=== PATIENT | female | born 1945 | race Caucasian/White ===

== ENCOUNTER → 2017-07-30 | Outpatient (CLI) | payer MEDICARE ==
[~2017-07-30] MED LIST: ALBU17IN2 INH; ASCO25TA PO; CALCIUM +D PO; CENT1TAB PO; CITA20TA4 PO; COUM2.5T17 PO; ESTR1TAB PO; FLON0.054; HYDR25TAB PO; LEVOPOW43 PO; MILKSUS PO; MIRA3350 PO; PERC5TAB12 PO; PERI8.6T PO; POTA75TA PO; PULM0.25 INH; RANI1TAB6 PO; SENO8.6T5 PO; SIMV20TA2 PO; TYLE325T5 PO; VESI10TA2 PO; VITA500046 PO; [UNRECOGNIZED DRUG - CODE] OS; [UNRECOGNIZED DRUG - OTHER] PO
--- NOTE | 2017-07-30 10:44 | REPMRS ---
Patient History The patient states she had a clinical breast exam in 07/2017. Patient is postmenopausal and has history of squamous cell skin cancer at age 63. Family history of colorectal cancer in sister at age 49. Benign excisional biopsy of the right breast, 1997. Took unspecified hormones for 19 years. Digital Woman Screen Mammo: July 30, 2017 - Exam #: [id number] Bilateral CC and MLO view(s) were taken. Technologist: Lexii Giang, Technologist Prior study comparison: July 29, 2016, digital woman screen mammo performed at [facility]. July 28, 2015, digital woman screen mammo performed at [facility]. FINDINGS: There are scattered fibroglandular densities. There is a fairly symmetric fibroglandular pattern in both breasts. There has been no interval development of masses, areas of architectural distortion or clusters of microcalcifications typical of malignancy. ASSESSMENT: BI-RADS/ACR category 2 mammogram. Benign finding(s). Recommendation Routine screening mammogram of both breasts in 1 year (for women over age 40). This mammogram was interpreted with the aid of an FDA-approved computer-aided dectection system. Electronically Signed By: Carlo Tidwell MD 07/30/17 [id number]
--- NOTE | 2017-07-31 09:34 | DEXA ---
AP SPINE L1 - L4 1.132 -0.5 1.2 LT FEMUR TOTAL HIPS REPLACED. RT FEMUR TOTAL HIPS REPLACED. TOTAL BODY TOTAL OTHER L-FOREARM 0.878 -0.1 1.8 DUAL FEMUR FRAX* ASSESSMENT Risk factors: Not performed. 10 year probability of fracture Major osteoporotic fracture % Hip fracture % COMMENTS: Normal bone densitometry of the spine. Normal bone densitometry of the left radius. The decreased density of the spine does represent a significant change. The density of the spine has decreased 3.2% since the initial exam on 06/2012. The spine density has decreased 6.9% since the most recent exam on 09/2003. FOLLOW-UP: Recommendation for the next bone density exam: 5 years. MARTÍND
== END ==
LOC: M WHC 09:00
PROVIDERS: ATTEND Nurse Practitioner Family
DX: Z01.419 Encounter for gynecological examination (general) (routine) without abnormal findings (principal); Z12.31 Encounter for screening mammogram for malignant neoplasm of breast; N95.9 Unspecified menopausal and perimenopausal disorder; Z78.0 Asymptomatic menopausal state; Z12.12 Encounter for screening for malignant neoplasm of rectum; Z92.89 Personal history of other medical treatment; Z92.23 Personal history of estrogen therapy
CPT/HCPCS: 77080; 82270; G0101; G0202

== ENCOUNTER → 2017-08-05 | Outpatient (REF) | payer MEDICARE ==
[2017-08-05 14:13] LABS: MEAN CORPUSCULAR HEMOGLOBIN 32.5 pg (27.0-33.0); MEAN CORPUSCULAR HGB CONC 35.1 g/dl (32.0-36.5); MEAN CORPUSCULAR VOLUME 92.7 fl (80.0-96.0); RED CELL DISTRIBUTION WIDTH 12.2 % (11.5-14.5); WHITE BLOOD COUNT 5.9 10^3/uL (4.0-10.0)
[2017-08-05 14:52] LABS: ALBUMIN/GLOBULIN RATIO 1.48 (1.00-1.93); ALKALINE PHOSPHATASE 68 U/L (45-117); ALT/SGPT 19 U/L (12-78); ANION GAP 8 MEQ/L (8-16); AST/SGOT 18 U/L (15-37); BILIRUBIN,TOTAL 1.1 MG/DL (0.2-1.0); BLOOD UREA NITROGEN 10 MG/DL (7-18); CALCIUM LEVEL 9.1 MG/DL (8.8-10.2); CARBON DIOXIDE LEVEL 28 MEQ/L (21-32); CHLORIDE LEVEL 95 MEQ/L (98-107); CHOLESTEROL LEVEL 173 MG/DL (<200); CREATININE FOR GFR 0.78 MG/DL (0.55-1.02); FREE T4 1.12 NG/DL (0.76-1.46); GLOMERULAR FILTRATION RATE > 60.0 (>39); GLUCOSE, FASTING 125 MG/DL (83-110); POTASSIUM SERUM 3.9 MEQ/L (3.5-5.1); SODIUM LEVEL 131 MEQ/L (136-145); TOTAL PROTEIN 6.7 GM/DL (6.4-8.2); TRIGLYCERIDES LEVEL 150 MG/DL (<150)
[2017-08-06 11:06] LABS: HEP C VIRUS AB SCREEN MEDICARE 0.2 INDEX (<0.8)
== END ==
LOC: M SFHCADAM 09:33
PROVIDERS: ATTEND Physician Assistant
DX: J44.9 Chronic obstructive pulmonary disease, unspecified (principal); I10 Essential (primary) hypertension; E78.2 Mixed hyperlipidemia; E55.9 Vitamin D deficiency, unspecified; Z11.59 Encounter for screening for other viral diseases
CPT/HCPCS: 80053; 80061; 82306; 84439; 84443; 85027; G0472

== ENCOUNTER → 2017-08-22 | Outpatient (REF) | payer MEDICARE | LOC: M LAB REF 16:20 | PROVIDERS: ATTEND Obstetrics & Gynecology | DX: Z87.440 Personal history of urinary (tract) infections (principal) ==

== ENCOUNTER → 2017-10-23 | Outpatient (REF) | payer MEDICARE ==
[2017-10-23 13:23] LABS: ANION GAP 5 MEQ/L (8-16); BLOOD UREA NITROGEN 12 MG/DL (7-18); CALCIUM LEVEL 9.3 MG/DL (8.8-10.2); CARBON DIOXIDE LEVEL 34 MEQ/L (21-32); CHLORIDE LEVEL 94 MEQ/L (98-107); CREATININE FOR GFR 0.71 MG/DL (0.55-1.02); GLOMERULAR FILTRATION RATE > 60.0 (>39); GLUCOSE, FASTING 101 MG/DL (83-110); POTASSIUM SERUM 3.7 MEQ/L (3.5-5.1); SODIUM LEVEL 133 MEQ/L (136-145)
== END ==
LOC: M SFHCPLAZ 09:56
PROVIDERS: ATTEND Family Medicine
DX: R73.03 Prediabetes (principal)

== ENCOUNTER 2018-03-02 06:18 | Day surgery (SDC) | payer MEDICARE ==
[2018-03-02] MEDS ORDERED: LR 1,000 ML IV ×4 (06:30→11:00)
[2018-03-02] MEDS ORDERED: MIDAZOLAM INJ 2 MG/2 ML VIAL (J2250) As Ordered ×2 (06:49)
[2018-03-02] MEDS ORDERED: fentaNYL 100 MCG/2 ML INJECTION (J3010) As Ordered ×2 (06:50)
[2018-03-02] MEDS ORDERED: PROPOFOL 200 MG/20 ML VIAL As Ordered ×4 (06:51→09:52)
[2018-03-02] MEDS ORDERED: ROCURONIUM BROMIDE 50 MG/5 ML VIAL As Ordered ×2 (06:51)
[2018-03-02] MEDS ORDERED: dexameTHASONE 4 MG/ML 1ML VIAL (J1100) As Ordered ×2 (06:51)
[2018-03-02] MEDS ORDERED: LIDOCAINE 2% INJ 100 MG/5 ML SDV (FOR ANES.) As Ordered ×2 (06:51)
[2018-03-02] MEDS: LR 1,000 ML IV ×2 (07:01)
[2018-03-02] MEDS ORDERED: ONDANSETRON 4MG/2ML VIAL (J2405) As Ordered ×4 (07:03→10:31)
[2018-03-02 07:10] LABS: BEDSIDE GLUCOSE 134 MG/DL (83-110)
[2018-03-02] MEDS: PHENAZOPYRIDINE 100 MG TAB PO ×2 (07:47)
[2018-03-02] MEDS: VASOPRESSIN INJ 20 UNITS/ML VIAL As Ordered ×2 (08:23)
[2018-03-02] MEDS ORDERED: PHENYLephrine HCL 500 MCG/5 ML (100MCG/ML) SYRINGE (J2370) As Ordered ×2 (09:01)
[2018-03-02] MEDS ORDERED: HYDROmorphone HCL 1 MG/ML SYRINGE (J1170) As Ordered ×2 (10:32)
[2018-03-02] MEDS: HYDROmorphone HCL 1 MG/ML SYRINGE (J1170) IV ×4 (10:40→11:05)
[2018-03-02] MEDS: ONDANSETRON 4MG/2ML VIAL (J2405) IV ×2 (10:40)
[2018-03-02] MEDS ORDERED: fentaNYL 100 MCG/2 ML INJECTION (J3010) IV ×2 (11:00)
[2018-03-02] MEDS ORDERED: METOCLOPRAMIDE INJ 10MG/2ML VIAL (J2765) IV ×2 (11:00)
[2018-03-02] MEDS ORDERED: PERCOCET 5MG/325MG TAB PO ×2 (11:00)
[2018-03-02] MEDS ORDERED: IBUPROFEN 600 MG TAB PO ×2 (11:15)
[2018-03-02] MEDS: NORCO, ANEXSIA 5/325MG TABLET (HYDROcodone/ACETAMINOPHEN) PO ×2 (12:19)
== END 2018-03-02 14:00 | disposition home or self-care (01) ==
LOC: M SDC 06:18
DX: N81.89 Other female genital prolapse (principal); N39.3 Stress incontinence (female) (male); N36.42 Intrinsic sphincter deficiency (ISD); N36.41 Hypermobility of urethra; N95.2 Postmenopausal atrophic vaginitis; I10 Essential (primary) hypertension; E78.5 Hyperlipidemia, unspecified; F32.9 Major depressive disorder, single episode, unspecified; K21.0 Gastro-esophageal reflux disease with esophagitis; G43.909 Migraine, unspecified, not intractable, without status migrainosus; M15.0 Primary generalized (osteo)arthritis; R73.03 Prediabetes; K57.30 Diverticulosis of large intestine without perforation or abscess without bleeding; E55.9 Vitamin D deficiency, unspecified; R06.02 Shortness of breath; J44.9 Chronic obstructive pulmonary disease, unspecified; R06.83 Snoring; R29.898 Other symptoms and signs involving the musculoskeletal system; Z88.1 Allergy status to other antibiotic agents; Z88.8 Allergy status to other drugs, medicaments and biological substances; Z79.899 Other long term (current) drug therapy; Z79.84 Long term (current) use of oral hypoglycemic drugs; Z85.828 Personal history of other malignant neoplasm of skin; Z90.710 Acquired absence of both cervix and uterus; Z96.1 Presence of intraocular lens; Z96.642 Presence of left artificial hip joint
CPT/HCPCS: 57282

== ENCOUNTER → 2018-04-20 | Outpatient (REF) | payer MEDICARE ==
[2018-04-20 13:17] LABS: ALBUMIN/GLOBULIN RATIO 1.29 (1.00-1.93); ALKALINE PHOSPHATASE 62 U/L (45-117); ALT/SGPT 17 U/L (12-78); ANION GAP 9 MEQ/L (8-16); AST/SGOT 19 U/L (7-37); BLOOD UREA NITROGEN 7 MG/DL (7-18); CALCIUM LEVEL 9.2 MG/DL (8.8-10.2); CARBON DIOXIDE LEVEL 32 MEQ/L (21-32); CHLORIDE LEVEL 95 MEQ/L (98-107); CHOLESTEROL LEVEL 185 MG/DL (<200); CREATININE FOR GFR 0.73 MG/DL (0.55-1.30); GLOMERULAR FILTRATION RATE > 60.0 (>39); GLUCOSE, FASTING 120 MG/DL (70-100); HDL CHOLESTEROL 68 MG/DL (>40); LDL CHOLESTEROL 90.8 MG/DL (<100); NON-HDL-C 117 MG/DL; POTASSIUM SERUM 3.7 MEQ/L (3.5-5.1); SODIUM LEVEL 136 MEQ/L (136-145); TOTAL PROTEIN 7.1 GM/DL (6.4-8.2); TRIGLYCERIDES LEVEL 131 MG/DL (<150)
[2018-04-20 14:36] LABS: ESTIMATED AVERAGE GLUCOSE 140 MG/DL (60-110); HEMOGLOBIN A1c 6.5 %
== END ==
LOC: M SFHCADAM 10:22
DX: R73.03 Prediabetes (principal); E78.2 Mixed hyperlipidemia
CPT/HCPCS: 80053

== ENCOUNTER → 2018-07-16 | Outpatient (REF) | payer MEDICARE ==
[2018-07-16 13:49] LABS: ANION GAP 10 MEQ/L (8-16); BLOOD UREA NITROGEN 8 MG/DL (7-18); CALCIUM LEVEL 9.2 MG/DL (8.8-10.2); CARBON DIOXIDE LEVEL 31 MEQ/L (21-32); CHLORIDE LEVEL 98 MEQ/L (98-107); CREATININE FOR GFR 0.74 MG/DL (0.55-1.30); GLOMERULAR FILTRATION RATE > 60.0 (>39); GLUCOSE, FASTING 130 MG/DL (70-100); POTASSIUM SERUM 3.6 MEQ/L (3.5-5.1); SODIUM LEVEL 139 MEQ/L (136-145)
[2018-07-16 15:26] LABS: ESTIMATED AVERAGE GLUCOSE 163 MG/DL (60-110); HEMOGLOBIN A1c 7.3 %
== END ==
LOC: M SFHCADAM 09:24
DX: E11.628 Type 2 diabetes mellitus with other skin complications (principal)
CPT/HCPCS: 83036

== ENCOUNTER → 2018-07-23 | Outpatient (CLI) | payer MEDICARE | LOC: M RAD 12:41 | DX: I87.393 Chronic venous hypertension (idiopathic) with other complications of bilateral lower extremity (principal); R22.43 Localized swelling, mass and lump, lower limb, bilateral | CPT/HCPCS: 93970 ==

== ENCOUNTER → 2018-07-30 | Outpatient (CLI) | payer MEDICARE | LOC: M WHC 08:46 | DX: Z01.411 Encounter for gynecological examination (general) (routine) with abnormal findings (principal); Z12.31 Encounter for screening mammogram for malignant neoplasm of breast (principal); R92.8 Other abnormal and inconclusive findings on diagnostic imaging of breast; Z78.0 Asymptomatic menopausal state; Z80.0 Family history of malignant neoplasm of digestive organs; Z98.890 Other specified postprocedural states; Z92.29 Personal history of other drug therapy; Z12.12 Encounter for screening for malignant neoplasm of rectum | CPT/HCPCS: 77067 ==

== ENCOUNTER → 2018-09-28 | Outpatient (REF) | payer MEDICARE ==
[2018-09-28 19:51] LABS: APPEARANCE, URINE CLEAR (CLEAR); BACTERIA, URINE AUTO NEGATIVE (NEGATIVE); BILIRUBIN, URINE AUTO NEGATIVE (NEGATIVE); BLOOD, URINE BLOOD NEGATIVE (NEGATIVE); COLOR, URINE YELLOW (YELLOW); GLUCOSE, URINE (UA) AUTO 3+ mg/dL (NEGATIVE); KETONE, URINE AUTO NEGATIVE (NEGATIVE); LEUKOCYTE ESTERASE, URINE AUTO 1+ (NEGATIVE); NITRITE, URINE AUTO NEGATIVE (NEGATIVE); PROTEIN, URINE AUTO NEGATIVE (NEGATIVE); RBC, URINE AUTO 2 /HPF (0-3); SQUAMOUS EPITHELIAL CELL UR AU 1 /HPF (0-6); UROBILINOGEN, URINE AUTO 0.2 mg/dL (0.0-2.0); WBC, URINE AUTO 6 /HPF (0-3)
== END ==
LOC: M SFHCADAM 19:27
DX: R35.0 Frequency of micturition (principal)
CPT/HCPCS: 81001

== ENCOUNTER → 2018-11-20 | Outpatient (REF) | payer MEDICARE ==
[~2018-11-20] MED LIST changes: +COLA100C5 PO; +FLUT22IN INH; +METF850T4 PO; +MILK120011 PO; -MILKSUS PO; +VENTAER INH
[2018-11-20 14:00] LABS: ALBUMIN 3.8 GM/DL (3.2-5.2); ALT/SGPT 19 U/L (12-78); BLOOD UREA NITROGEN 13 MG/DL (7-18); CALCIUM LEVEL 8.9 MG/DL (8.8-10.2); CARBON DIOXIDE LEVEL 31 MEQ/L (21-32); CHLORIDE LEVEL 103 MEQ/L (98-107); CREATININE FOR GFR 0.79 MG/DL (0.55-1.30); GLOMERULAR FILTRATION RATE > 60.0 (>39); GLUCOSE, FASTING 128 MG/DL (70-100); POTASSIUM SERUM 3.7 MEQ/L (3.5-5.1); SODIUM LEVEL 143 MEQ/L (136-145); TOTAL PROTEIN 6.9 GM/DL (6.4-8.2)
[2018-11-20 14:32] LABS: MAU/CREAT RATIO 17.8 MCG/MG (0.0-30.0)
== END ==
LOC: M SFHCADAM 09:23
PROVIDERS: ATTEND Family Medicine
DX: E11.628 Type 2 diabetes mellitus with other skin complications (principal)

== ENCOUNTER → 2019-02-18 | Outpatient (REF) | payer MEDICARE ==
[~2019-02-18] MED LIST changes: -ASCO25TA PO; -CITA20TA4 PO; +CITA20TA6 PO; +HYDR-2541 PO; -HYDR25TAB PO; +VITA1TAB23 PO
[2019-02-18 12:35] LABS: HEMATOCRIT 43.8 % (36.0-47.0); HEMOGLOBIN 14.8 g/dl (12.0-15.5); MEAN CORPUSCULAR HGB CONC 33.8 g/dl (32.0-36.5); MEAN CORPUSCULAR VOLUME 91.6 fl (80.0-96.0); PLATELET COUNT, AUTOMATED 205 10^3/uL (150-450); RED BLOOD COUNT 4.78 10^6/uL (4.00-5.40); WHITE BLOOD COUNT 5.4 10^3/uL (4.0-10.0)
[2019-02-18 12:38] LABS: ALBUMIN 4.1 GM/DL (3.2-5.2); ALT/SGPT 19 U/L (12-78); BILIRUBIN,TOTAL 1.2 MG/DL (0.2-1.0); BLOOD UREA NITROGEN 10 MG/DL (7-18); CALCIUM LEVEL 8.9 MG/DL (8.8-10.2); CARBON DIOXIDE LEVEL 34 MEQ/L (21-32); CHLORIDE LEVEL 97 MEQ/L (98-107); CHOLESTEROL LEVEL 212 MG/DL (<200); CHOLESTEROL RISK RATIO 2.904 (<5); CREATININE FOR GFR 0.81 MG/DL (0.55-1.30); GLOMERULAR FILTRATION RATE > 60.0 (>39); GLUCOSE, FASTING 127 MG/DL (70-100); HDL CHOLESTEROL 73 MG/DL (>40); LDL CHOLESTEROL 115 MG/DL (<100); NON-HDL-C 139 MG/DL; POTASSIUM SERUM 3.8 MEQ/L (3.5-5.1); SODIUM LEVEL 138 MEQ/L (136-145); TRIGLYCERIDES LEVEL 121 MG/DL (<150)
[2019-02-18 13:03] LABS: HEMOGLOBIN A1c 7.2 %
== END ==
LOC: M SFHCADAM 09:23
PROVIDERS: ATTEND Family Medicine
DX: F43.21 Adjustment disorder with depressed mood (principal); J44.9 Chronic obstructive pulmonary disease, unspecified; E11.628 Type 2 diabetes mellitus with other skin complications; E78.2 Mixed hyperlipidemia

== ENCOUNTER → 2019-06-01 | Outpatient (REF) | payer MEDICARE ==
[2019-06-01 13:17] LABS: BLOOD UREA NITROGEN 8 MG/DL (7-18); CALCIUM LEVEL 9.3 MG/DL (8.8-10.2); CARBON DIOXIDE LEVEL 32 MEQ/L (21-32); CHLORIDE LEVEL 98 MEQ/L (98-107); CREATININE FOR GFR 0.74 MG/DL (0.55-1.30); GLOMERULAR FILTRATION RATE > 60.0 (>39); GLUCOSE, FASTING 116 MG/DL (70-100); POTASSIUM SERUM 3.6 MEQ/L (3.5-5.1); SODIUM LEVEL 136 MEQ/L (136-145)
[2019-06-01 13:41] LABS: HEMOGLOBIN A1c 6.6 %
== END ==
LOC: M SFHCADAM 09:35
PROVIDERS: ATTEND Family Medicine
DX: E11.628 Type 2 diabetes mellitus with other skin complications (principal)

== ENCOUNTER → 2019-08-09 | Outpatient (CLI) | payer MEDICARE ==
[~2019-08-09] MED LIST changes: +RANI-397 PO; -RANI1TAB6 PO; -SIMV20TA2 PO; +SIMV20TA22 PO
--- NOTE | 2019-08-09 11:13 | REPMRS ---
Patient History The patient states she had a clinical breast exam in 07/2019. Family history of colorectal cancer at age 49 in son. Benign excisional biopsy of the right breast, 1997. Took unspecified hormones for 19 years. 3D TOMOSYNTHESIS WAS PERFORMED. The [facility] lifetime risk for breast cancer is 3.4%. Digital Woman Screen Mammo: August 09, 2019 - Exam #: [id number] Bilateral CC and MLO view(s) were taken. Technologist: Denise Hyde Technologist Prior study comparison: July 30, 2018, bilateral digital woman screen mammo performed at [facility]. July 30, 2017, digital woman screen mammo performed at [facility] [employer] [facility]. FINDINGS: There are scattered fibroglandular densities. There has been no change in the appearance of the mammogram from the prior studies. There is a mild amount of residual fibroglandular tissue which is fairly symmetric. There is no interval development of dominant mass, architectural distortion, or clustered microcalcification suggestive of malignancy. Assessment: BI-RADS/ACR category 1 mammogram. Negative Mammogram. Recommendation Routine screening mammogram in 1 year (for women over age 40). This mammogram was interpreted with the aid of an FDA-approved computer-aided dectection system. Electronically Signed By: Carlo Tidwell MD 08/09/19 [id number]
== END ==
LOC: M WHC 09:23
PROVIDERS: ATTEND Nurse Practitioner Family
DX: Z12.31 Encounter for screening mammogram for malignant neoplasm of breast (principal); Z80.0 Family history of malignant neoplasm of digestive organs; Z86.018 Personal history of other benign neoplasm; Z92.29 Personal history of other drug therapy
CPT/HCPCS: 77063; 77067; G0463

== ENCOUNTER → 2019-09-29 | Outpatient (REF) | payer MEDICARE | LOC: M LAB REF 17:24 | PROVIDERS: ATTEND Dermatology | DX: D23.4 Other benign neoplasm of skin of scalp and neck (principal); L57.0 Actinic keratosis ==

== ENCOUNTER → 2020-05-26 | Outpatient (REF) | payer MEDICARE ==
[~2020-05-26] MED LIST changes: +ASCO250T20 PO; -VITA1TAB23 PO
[2020-05-26 13:27] LABS: BLOOD UREA NITROGEN 7 MG/DL (7-18); CALCIUM LEVEL 9.1 MG/DL (8.8-10.2); CARBON DIOXIDE LEVEL 33 MEQ/L (21-32); CHLORIDE LEVEL 102 MEQ/L (98-107); CREATININE FOR GFR 0.72 MG/DL (0.55-1.30); GLOMERULAR FILTRATION RATE > 60.0 (>39); GLUCOSE, FASTING 117 MG/DL (70-100); POTASSIUM SERUM 3.9 MEQ/L (3.5-5.1); SODIUM LEVEL 140 MEQ/L (136-145)
[2020-05-26 13:36] LABS: HEMOGLOBIN A1c 6.8 %
== END ==
LOC: M SFHCADAM 09:34
PROVIDERS: ATTEND Family Medicine
DX: E11.628 Type 2 diabetes mellitus with other skin complications (principal)

== ENCOUNTER → 2020-07-04 | Outpatient (CLI) | payer MEDICARE | LOC: M RAD 09:03 | PROVIDERS: ATTEND Physician Assistant | DX: I87.2 Venous insufficiency (chronic) (peripheral) (principal); I83.813 Varicose veins of bilateral lower extremities with pain ==

== ENCOUNTER → 2020-08-10 | Outpatient (CLI) | payer MEDICARE ==
--- NOTE | 2020-08-10 11:38 | REPMRS ---
Patient History The patient states she had a clinical breast exam in August 2020. Family history of colorectal cancer at age 49 in son. Benign excisional biopsy of the right breast, 1997. Took unspecified hormones for 19 years. 3D TOMOSYNTHESIS WAS PERFORMED. [facility] lifetime risk for breast cancer is 3.2%. VOLPARA DENSITY B. Digital Woman Screen Mammo: August 10, 2020 - Exam #: [id number] Bilateral CC and MLO view(s) were taken. Technologist: Zuleyma Garcia, Technologist Prior study comparison: August 09, 2019, bilateral digital woman screen mammo performed at [facility]. July 30, 2018, bilateral digital woman screen mammo performed at [facility]. FINDINGS: There are scattered fibroglandular densities. There has been no change in the appearance of the mammogram from the prior studies. There is a mild amount of residual fibroglandular tissue which is fairly symmetric. There is no interval development of dominant mass, architectural distortion, or clustered microcalcification suggestive of malignancy. Assessment: BI-RADS/ACR category 1 mammogram. Negative Mammogram. Recommendation Routine screening mammogram in 1 year (for women over age 40). This mammogram was interpreted with the aid of an FDA-approved computer-aided dectection system. Electronically Signed By: Carlo Tidwell MD 08/10/20 [id number]
== END ==
LOC: M WHC 09:39
PROVIDERS: ATTEND Nurse Practitioner Family
DX: Z01.411 Encounter for gynecological examination (general) (routine) with abnormal findings (principal); Z12.31 Encounter for screening mammogram for malignant neoplasm of breast; Z80.0 Family history of malignant neoplasm of digestive organs; Z86.018 Personal history of other benign neoplasm; Z92.29 Personal history of other drug therapy
CPT/HCPCS: 77063; 77067; G0101

== ENCOUNTER → 2020-11-20 | Outpatient (REF) | payer MEDICARE ==
[2020-11-20 13:10] LABS: HEMATOCRIT 36.8 % (36.0-47.0); MEAN CORPUSCULAR HEMOGLOBIN 30.5 pg (27.0-33.0); MEAN CORPUSCULAR HGB CONC 32.6 g/dl (32.0-36.5); MEAN CORPUSCULAR VOLUME 93.4 fl (80.0-96.0); PLATELET COUNT, AUTOMATED 237 10^3/uL (150-450); RED BLOOD COUNT 3.94 10^6/uL (4.00-5.40); WHITE BLOOD COUNT 4.8 10^3/uL (4.0-10.0)
[2020-11-20 13:52] LABS: MALB URINE SIEMENS 25.8 MG/L; MAU/CREAT RATIO 11.2 MCG/MG (0.0-30.0)
[2020-11-20 13:55] LABS: ALT/SGPT 18 U/L (12-78); BILIRUBIN,TOTAL 0.8 MG/DL (0.2-1.0); BLOOD UREA NITROGEN 10 MG/DL (7-18); CALCIUM LEVEL 8.9 MG/DL (8.8-10.2); CARBON DIOXIDE LEVEL 32 MEQ/L (21-32); CHLORIDE LEVEL 103 MEQ/L (98-107); CHOLESTEROL LEVEL 188 MG/DL (<200); CHOLESTEROL RISK RATIO 2.764 (<5); CREATININE FOR GFR 0.76 MG/DL (0.55-1.30); FREE T4 1.05 NG/DL (0.76-1.46); GLOMERULAR FILTRATION RATE > 60.0 (>39); GLUCOSE, FASTING 131 MG/DL (70-100); HDL CHOLESTEROL 68 MG/DL (>40); LDL CHOLESTEROL 98 MG/DL (<100); NON-HDL-C 120 MG/DL; SODIUM LEVEL 139 MEQ/L (136-145); TOTAL PROTEIN 7.1 GM/DL (6.4-8.2); TRIGLYCERIDES LEVEL 112 MG/DL (<150); VITAMIN B12 LEVEL 704 PG/ML (247-911)
[2020-11-20 15:13] LABS: HEMOGLOBIN A1c 6.9 %
== END ==
LOC: M SFHCADAM 09:27
PROVIDERS: ATTEND Family Medicine
DX: F43.21 Adjustment disorder with depressed mood (principal); E11.628 Type 2 diabetes mellitus with other skin complications; I10 Essential (primary) hypertension; E78.2 Mixed hyperlipidemia; E55.9 Vitamin D deficiency, unspecified; Z79.899 Other long term (current) drug therapy

== ENCOUNTER → 2020-12-08 | Outpatient (CLI) | payer MEDICARE ==
--- NOTE | 2020-12-08 10:58 | REPVR ---
PROCEDURE INFORMATION: Exam: CT Head Without Contrast Exam date and time: 12/08/2020 10:22 AM Age: 75 years old Clinical indication: Pain; Headache; Additional info: Tramatic subdural hematoma TECHNIQUE: Imaging protocol: Computed tomography of the head without contrast. Radiation optimization: All CT scans at this facility use at least one of these dose optimization techniques: automated exposure control; mA and/or kV adjustment per patient size (includes targeted exams where dose is matched to clinical indication); or iterative reconstruction. COMPARISON: No relevant prior studies available. FINDINGS: Brain: There is no hemorrhage or mass effect. Mild diffuse volume loss is within the range of normal for patient age. Trace hyperdensity underlies the craniotomy flap, likely postoperative in nature. Cerebral ventricles: No ventriculomegaly. Bones/joints: There are left frontotemporal craniotomy changes. Paranasal sinuses: Visualized sinuses are unremarkable. No fluid levels. Mastoid air cells: Visualized mastoid air cells are well aerated. Soft tissues: Unremarkable. IMPRESSION: No acute hemorrhage. Electronically signed by: Dayan Branham On 12/08/2020 10:58:25 AM
== END ==
LOC: M RAD 10:10
PROVIDERS: ATTEND Family Medicine
DX: Z87.828 Personal history of other (healed) physical injury and trauma (principal)

== ENCOUNTER → 2021-05-25 | Outpatient (REF) | payer MEDICARE ==
[2021-05-25 12:32] LABS: BLOOD UREA NITROGEN 8 MG/DL (7-18); CALCIUM LEVEL 8.7 MG/DL (8.8-10.2); CARBON DIOXIDE LEVEL 31 MEQ/L (21-32); CHLORIDE LEVEL 105 MEQ/L (98-107); CREATININE FOR GFR 0.65 MG/DL (0.55-1.30); GLOMERULAR FILTRATION RATE > 60.0 (>39); GLUCOSE, FASTING 144 MG/DL (70-100); POTASSIUM SERUM 3.8 MEQ/L (3.5-5.1); SODIUM LEVEL 137 MEQ/L (136-145)
[2021-05-25 13:07] LABS: HEMOGLOBIN A1c 7.3 %
== END ==
LOC: M SFHCADAM 08:51
PROVIDERS: ATTEND Family Medicine
DX: E11.628 Type 2 diabetes mellitus with other skin complications (principal)

== ENCOUNTER → 2022-02-27 | Outpatient (REF) | payer MEDICARE ==
[2022-02-27 12:50] LABS: BLOOD UREA NITROGEN 10 MG/DL (7-18); CARBON DIOXIDE LEVEL 32 MEQ/L (21-32); CHLORIDE LEVEL 104 MEQ/L (98-107); CREATININE FOR GFR 0.64 MG/DL (0.55-1.30); GLOMERULAR FILTRATION RATE > 60.0 (>39); GLUCOSE, FASTING 163 MG/DL (70-100); POTASSIUM SERUM 4.1 MEQ/L (3.5-5.1); SODIUM LEVEL 141 MEQ/L (136-145)
[2022-02-27 13:01] LABS: TOTAL 25(OH) VITAMIN D 69.8 NG/ML (30.0-100.0)
[2022-02-27 15:17] LABS: HEMOGLOBIN A1c 7.8 %
== END ==
LOC: M SFHCADAM 09:12
PROVIDERS: ATTEND Family Medicine
DX: E11.628 Type 2 diabetes mellitus with other skin complications (principal); E55.9 Vitamin D deficiency, unspecified

== ENCOUNTER → 2022-02-28 | Outpatient (REF) | payer MEDICARE ==
[2022-02-28 16:50] LABS: MALB URINE SIEMENS 39.2 MG/L
== END ==
LOC: M SFHCADAM 16:03
PROVIDERS: ATTEND Family Medicine
DX: E11.628 Type 2 diabetes mellitus with other skin complications (principal)

== ENCOUNTER → 2022-03-10 | Outpatient (REF) | payer MEDICARE | LOC: M LAB REF 15:12 | PROVIDERS: ATTEND Physician Assistant Medical | DX: J06.9 Acute upper respiratory infection, unspecified (principal) ==

== ENCOUNTER → 2022-07-08 | Outpatient (REF) | payer MEDICARE ==
[2022-07-08 13:58] LABS: ALBUMIN 3.5 GM/DL (3.2-5.2); ALT/SGPT 13 U/L (12-78); BILIRUBIN,TOTAL 0.7 MG/DL (0.2-1.0); BLOOD UREA NITROGEN 7 MG/DL (7-18); CALCIUM LEVEL 9.1 MG/DL (8.8-10.2); CARBON DIOXIDE LEVEL 31 MEQ/L (21-32); CHLORIDE LEVEL 102 MEQ/L (98-107); CHOLESTEROL LEVEL 157 MG/DL (<200); CHOLESTEROL RISK RATIO 2.907 (<5); CREATININE FOR GFR 0.64 MG/DL (0.55-1.30); GLOMERULAR FILTRATION RATE > 60.0 (>39); GLUCOSE, FASTING 175 MG/DL (70-100); HDL CHOLESTEROL 54 MG/DL (>40); LDL CHOLESTEROL 82 MG/DL (<100); NON-HDL-C 103 MG/DL; POTASSIUM SERUM 3.9 MEQ/L (3.5-5.1); SODIUM LEVEL 138 MEQ/L (136-145); TOTAL PROTEIN 7.1 GM/DL (6.4-8.2); TRIGLYCERIDES LEVEL 106 MG/DL (<150)
[2022-07-08 21:35] LABS: HEMOGLOBIN A1c 8.8 %
== END ==
LOC: M SFHCADAM 08:52
PROVIDERS: ATTEND Family Medicine
DX: E11.628 Type 2 diabetes mellitus with other skin complications (principal); E78.2 Mixed hyperlipidemia

== ENCOUNTER → 2022-10-08 | Outpatient (REF) | payer MEDICARE ==
[2022-10-08 14:10] LABS: CARBON DIOXIDE LEVEL 32 MMOL/L (20-31); CHLORIDE LEVEL 98 MMOL/L (98-107); POTASSIUM SERUM 3.6 MMOL/L (3.5-5.1); SODIUM LEVEL 142 MMOL/L (136-145)
[2022-10-08 14:15] LABS: CALCIUM LEVEL 9.1 MG/DL (8.3-10.6)
[2022-10-08 14:16] LABS: BLOOD UREA NITROGEN 9 MG/DL (9-23); GLUCOSE, FASTING 187 MG/DL (74-106)
[2022-10-08 14:18] LABS: CREATININE FOR GFR 0.46 MG/DL (0.55-1.30); GLOMERULAR FILTRATION RATE > 60.0 (>39)
[2022-10-08 15:33] LABS: HEMOGLOBIN A1c 8.8 % (4.0-6.0)
== END ==
LOC: M SFHCADAM 09:14
PROVIDERS: ATTEND Family Medicine
DX: E11.628 Type 2 diabetes mellitus with other skin complications (principal)

== ENCOUNTER → 2023-01-10 | Outpatient (REF) | payer MEDICARE ==
[2023-01-10 14:07] LABS: HEMATOCRIT 29.4 % (36.0-47.0); HEMOGLOBIN 9.3 g/dl (12.0-15.5); MEAN CORPUSCULAR HEMOGLOBIN 26.1 pg (27.0-33.0); MEAN CORPUSCULAR HGB CONC 31.6 g/dl (32.0-36.5); MEAN CORPUSCULAR VOLUME 82.6 fl (80.0-96.0); PLATELET COUNT, AUTOMATED 477 10^3/uL (150-450); RED BLOOD COUNT 3.56 10^6/uL (4.00-5.40); WHITE BLOOD COUNT 14.4 10^3/uL (4.0-10.0)
[2023-01-10 14:26] LABS: HEMOGLOBIN A1c 9.2 % (4.0-6.0)
[2023-01-10 15:18] LABS: ALBUMIN 2.4 G/DL (3.2-5.2); ALKALINE PHOSPHATASE 94 U/L (46-116); ALT/SGPT 18 U/L (7.0-40); AST/SGOT 24 U/L (<34); BILIRUBIN,TOTAL 0.8 MG/DL (0.3-1.2); BLOOD UREA NITROGEN 8 MG/DL (9-23); CALCIUM LEVEL 9.2 MG/DL (8.3-10.6); CARBON DIOXIDE LEVEL 37 MMOL/L (20-31); CHLORIDE LEVEL 86 MMOL/L (98-107); CHOLESTEROL LEVEL 143 MG/DL (<200); CHOLESTEROL RISK RATIO 3.79 (<5); CREATININE FOR GFR 0.44 MG/DL (0.55-1.30); GLOMERULAR FILTRATION RATE > 60.0 (>39); GLUCOSE, FASTING 427 MG/DL (74-106); HDL CHOLESTEROL 37.7 MG/DL (>40); LDL CHOLESTEROL 81.7 MG/DL (<100); NON-HDL-C 105 MG/DL; POTASSIUM SERUM 2.7 MMOL/L (3.5-5.1); SODIUM LEVEL 134 MMOL/L (136-145); TOTAL PROTEIN 6.5 G/DL (5.7-8.2); TRIGLYCERIDES LEVEL 118 MG/DL (<150)
== END ==
LOC: M SFHCADAM 09:29
PROVIDERS: ATTEND Family Medicine
DX: E11.628 Type 2 diabetes mellitus with other skin complications (principal); Z86.79 Personal history of other diseases of the circulatory system; E78.2 Mixed hyperlipidemia

== ENCOUNTER 2023-01-15 16:28 | Inpatient (IN) | payer MEDICARE ==
[~2023-01-15] VITALS: Ht 157.5 cm; Wt 61.4 kg
[~2023-01-15 16:28] MED LIST changes: -ALCOPAD25 TOP; -AMLO1TAB24 PO; -BLOOKIT21 XX; -CEFD300C41; -D3 H2000 PO; -DEXT4TAB83 PO; -FLUT15.820 NARES; -GABA-1171 PO; -GLUC1TES2 XX; -INSU100I48 SQ; -LANC30MI XX; -METF-839 PO; -OMEP-173 PO; -PEN1MIS21 SC; -POTA-151 PO
[2023-01-15] MEDS ORDERED: LR 1,000 ML IV SCH (16:50)
[2023-01-15] MEDS ORDERED: GLUCAGON INJ 1MG VIAL SC PRN (16:50)
[2023-01-15] MEDS ORDERED: DEXTROSE 50% 50ML SYRINGE IV PRN (16:50)
[2023-01-15] MEDS ORDERED: GLUCOSE 4GM CHEW TABLET PO PRN (16:50)
[2023-01-15] MEDS: INSULIN LISPRO (NovoLOG) PER UNIT SC SCH ×2 (17:30→22:27)
[2023-01-15 19:25] LABS: VENOUS BASE EXCESS 9.9 (-2.0-2.0); VENOUS HCO3 34.8 MEQ/L (23.0-27.0); VENOUS O2 SATURATION 92.9 % (60.0-80.0); VENOUS PARTIAL PRESSURE CO2 48.1 mmHg (38.0-50.0); VENOUS PARTIAL PRESSURE O2 63.6 mmHg (30.0-50.0); VENOUS PH 7.477 UNITS (7.330-7.430); VENOUS STANDARD HCO3 33.5 MEQ/L; VENOUS TOTAL CO2 36.3 MEQ/L (24.0-28.0)
[2023-01-15 19:36] LABS: BASO % 0.2 % (0.0-1.0); EOS % 0.2 % (0.0-3.0); HEMATOCRIT 33.4 % (36.0-47.0); HEMATOCRIT 34.5 % (36.0-47.0); HEMOGLOBIN 10.6 g/dl (12.0-15.5); HEMOGLOBIN 10.7 g/dl (12.0-15.5); LYMPH # 1.1 10^3/uL (1.5-5.0); LYMPH % 8.7 % (24.0-44.0); MEAN CORPUSCULAR HEMOGLOBIN 25.8 pg (27.0-33.0); MEAN CORPUSCULAR HEMOGLOBIN 26.2 pg (27.0-33.0); MEAN CORPUSCULAR HGB CONC 31.7 g/dl (32.0-36.5); MEAN CORPUSCULAR VOLUME 82.5 fl (80.0-96.0); MEAN CORPUSCULAR VOLUME 83.1 fl (80.0-96.0); MONO # 0.7 10^3/uL (0.0-0.8); MONO % 5.4 % (2.0-8.0); NEUTROPHILS # 10.5 10^3/uL (1.5-8.5); PLATELET COUNT, AUTOMATED 451 10^3/uL (150-450); PLATELET COUNT, AUTOMATED 459 10^3/uL (150-450); RED BLOOD COUNT 4.05 10^6/uL (4.00-5.40); RED BLOOD COUNT 4.15 10^6/uL (4.00-5.40); WHITE BLOOD COUNT 12.3 10^3/uL (4.0-10.0)
[2023-01-15] MEDS ORDERED: LR 1,000 ML IV ONE (19:40)
[2023-01-15] MEDS ORDERED: INSULIN LISPRO (NovoLOG) PER UNIT SC ONE (19:40)
[2023-01-15 20:03] LABS: PERCENT SATURATION 6.3 % (13.2-45.0)
[2023-01-15 20:05] LABS: FERRITIN 183.1 NG/ML (7.3-270.7)
[2023-01-15 20:06] LABS: FOLATE 13.68 NG/ML (>5.4); FREE T4 1.33 NG/DL (0.89-1.76); THYROID STIMULATING HORMONE 0.699 uIU/ML (0.55-4.78)
[2023-01-15] MEDS ORDERED: POTA-151 PO (20:57)
[2023-01-15] MEDS ORDERED: OMEP-173 PO (20:57)
[2023-01-15] MEDS ORDERED: FLUT15.820 NARES (20:57)
[2023-01-15] MEDS ORDERED: GABA-1171 PO (20:57)
[2023-01-15] MEDS ORDERED: D3 H2000 PO (20:57)
[2023-01-15] MEDS ORDERED: AMLO1TAB24 PO (20:57)
[2023-01-15] MEDS ORDERED: HOME MED LIST COMPLETE! XX SCH (21:00)
[2023-01-15 21:08] LABS: ALBUMIN 2.5 G/DL (3.2-5.2); ALKALINE PHOSPHATASE 104 U/L (46-116); ALT/SGPT 23 U/L (7.0-40); AST/SGOT 26 U/L (<34); BILIRUBIN,TOTAL 0.6 MG/DL (0.3-1.2); BLOOD UREA NITROGEN 16 MG/DL (9-23); CALCIUM LEVEL 9.5 MG/DL (8.3-10.6); CARBON DIOXIDE LEVEL 35 MMOL/L (20-31); CHLORIDE LEVEL 84 MMOL/L (98-107); CREATININE FOR GFR 0.44 MG/DL (0.55-1.30); GLOMERULAR FILTRATION RATE > 60.0 (>39); GLUCOSE, FASTING 657 MG/DL (74-106); POTASSIUM SERUM 2.6 MMOL/L (3.5-5.1); SODIUM LEVEL 127 MMOL/L (136-145); TOTAL PROTEIN 6.7 G/DL (5.7-8.2)
[2023-01-15 21:15] VITALS: BP 151/78
[2023-01-15] MEDS ORDERED: DOCUSATE SODIUM 100MG CAPSULE PO PRN (21:40)
[2023-01-15] MEDS ORDERED: POTASSIUM CHLORIDE 10MEQ SR TABLET PO ONE (22:00)
[2023-01-15] MEDS ORDERED: LevoFLOXacin IV 750 MG in IV 1 EA IV SCH (22:00)
[2023-01-15 22:16] LABS: MAGNESIUM LEVEL 1.2 MG/DL (1.8-2.4)
[2023-01-15 22:25] LABS: APPEARANCE, URINE CLEAR (CLEAR); BACTERIA, URINE AUTO 1+ (NEGATIVE); BILIRUBIN, URINE AUTO NEGATIVE (NEGATIVE); BLOOD, URINE BLOOD NEGATIVE (NEGATIVE); COLOR, URINE STRAW (YELLOW); GLUCOSE, URINE (UA) AUTO 3+ mg/dL (NEGATIVE); KETONE, URINE AUTO TRACE mg/dL (NEGATIVE); LEUKOCYTE ESTERASE, URINE AUTO NEGATIVE (NEGATIVE); NITRITE, URINE AUTO NEGATIVE (NEGATIVE); PROTEIN, URINE AUTO NEGATIVE (NEGATIVE); RBC, URINE AUTO 4 /HPF (0-3); SPECIFIC GRAVITY URINE AUTO 1.018 (1.002-1.035); SQUAMOUS EPITHELIAL CELL UR AU 0 /HPF (0-6); UROBILINOGEN, URINE AUTO 0.2 mg/dL (0.0-2.0); WBC, URINE AUTO 8 /HPF (0-3)
[2023-01-15] MEDS: GABAPENTIN 100 MG CAP PO SCH (22:26)
[2023-01-15] MEDS: SIMVASTATIN 20 MG TAB PO SCH (22:26)
[2023-01-15] MEDS: KCL 40MEQ in NS 1000ML 1,000 ML IV SCH (22:28)
[2023-01-15] MEDS: MAG SULF 1GM/100ML (MAG RUN) 1 GM in IV 1 EA IV SCH (23:16)
[2023-01-16] MEDS: MAG SULF 1GM/100ML (MAG RUN) 1 GM in IV 1 EA IV SCH (00:22)
[2023-01-16 02:00] VITALS: BP 120/67
[2023-01-16] MEDS: ACETAMINOPHEN TAB 650MG DOSE (2X325MG) PO PRN (03:16)
[2023-01-16 05:00] VITALS: BP 122/68
[2023-01-16 06:15] LABS: HEMATOCRIT 27.1 % (36.0-47.0); MEAN CORPUSCULAR HEMOGLOBIN 26.1 pg (27.0-33.0); MEAN CORPUSCULAR HGB CONC 31.7 g/dl (32.0-36.5); MEAN CORPUSCULAR VOLUME 82.4 fl (80.0-96.0); RED BLOOD COUNT 3.29 10^6/uL (4.00-5.40); WHITE BLOOD COUNT 14.9 10^3/uL (4.0-10.0)
[2023-01-16 06:22] LABS: HEMOGLOBIN 8.6 g/dl (12.0-15.5)
[2023-01-16 06:23] LABS: PLATELET COUNT, AUTOMATED 354 10^3/uL (150-450)
[2023-01-16 06:47] LABS: BLOOD UREA NITROGEN 8 MG/DL (9-23); CALCIUM LEVEL 8.3 MG/DL (8.3-10.6); CARBON DIOXIDE LEVEL 33 MMOL/L (20-31); CHLORIDE LEVEL 92 MMOL/L (98-107); CREATININE FOR GFR 0.37 MG/DL (0.55-1.30); GLOMERULAR FILTRATION RATE > 60.0 (>39); GLUCOSE, FASTING 256 MG/DL (74-106); POTASSIUM SERUM 3.4 MMOL/L (3.5-5.1); SODIUM LEVEL 133 MMOL/L (136-145)
[2023-01-16] MEDS ORDERED: POTASSIUM CHLORIDE 10MEQ SR TABLET PO SCH ×2 (09:00→21:00)
[2023-01-16] MEDS: INSULIN LISPRO (NovoLOG) PER UNIT SC SCH ×4 (09:08→21:20)
[2023-01-16] MEDS: CitaloPRAM (CeleXA) 20 MG TAB PO SCH (09:08)
[2023-01-16] MEDS: GABAPENTIN 100 MG CAP PO SCH ×2 (09:08→21:19)
[2023-01-16] MEDS: ENOXAPARIN 40MG/0.4ML SYRINGE (J1650 PER 10MG) SC SCH (09:09)
[2023-01-16] MEDS: KCL 40MEQ in NS 1000ML 1,000 ML IV SCH ×2 (09:09→18:32)
[2023-01-16 10:00] VITALS: BP 121/67
[2023-01-16] MEDS ORDERED: ISOVUE-370 76% 100ML VIAL As Ordered ONE (10:09)
[2023-01-16] MEDS ORDERED: POTASSIUM CHLORIDE 10MEQ SR TABLET PO ONE ×2 (10:15)
[2023-01-16 10:31] LABS: MAGNESIUM LEVEL 1.4 MG/DL (1.8-2.4)
[2023-01-16 14:00] VITALS: BP 121/66
[2023-01-16 20:00] VITALS: BP 132/75
[2023-01-16] MEDS: LevoFLOXacin 750 MG TABLET PO SCH (21:19)
[2023-01-16] MEDS: SIMVASTATIN 20 MG TAB PO SCH (21:19)
[2023-01-16] MEDS: LEVEMIR (INSULIN DETEMIR) 1 UNITS/0.01ML SC SCH (21:20)
[2023-01-16] MEDS ORDERED: PROHANCE 279.3MG/ML 15ML VIAL As Ordered ONE (22:25)
[2023-01-17] MEDS: ACETAMINOPHEN TAB 650MG DOSE (2X325MG) PO PRN (00:07)
[2023-01-17 01:38] VITALS: BP 166/89
[2023-01-17] MEDS: KCL 40MEQ in NS 1000ML 1,000 ML IV SCH (05:49)
[2023-01-17 06:00] VITALS: BP 157/89
[2023-01-17 06:14] LABS: HEMATOCRIT 31.8 % (36.0-47.0); HEMOGLOBIN 9.7 g/dl (12.0-15.5); MEAN CORPUSCULAR HGB CONC 30.5 g/dl (32.0-36.5); MEAN CORPUSCULAR VOLUME 85.3 fl (80.0-96.0); PLATELET COUNT, AUTOMATED 365 10^3/uL (150-450); RED BLOOD COUNT 3.73 10^6/uL (4.00-5.40); WHITE BLOOD COUNT 12.7 10^3/uL (4.0-10.0)
[2023-01-17 06:34] LABS: BLOOD UREA NITROGEN < 5 MG/DL (9-23); CALCIUM LEVEL 8.4 MG/DL (8.3-10.6); CARBON DIOXIDE LEVEL 29 MMOL/L (20-31); CHLORIDE LEVEL 101 MMOL/L (98-107); CREATININE FOR GFR 0.36 MG/DL (0.55-1.30); GLOMERULAR FILTRATION RATE > 60.0 (>39); GLUCOSE, FASTING 145 MG/DL (74-106); MAGNESIUM LEVEL 1.4 MG/DL (1.8-2.4); POTASSIUM SERUM 4.9 MMOL/L (3.5-5.1); SODIUM LEVEL 137 MMOL/L (136-145)
[2023-01-17] MEDS: ENOXAPARIN 40MG/0.4ML SYRINGE (J1650 PER 10MG) SC SCH (08:46)
[2023-01-17] MEDS: INSULIN LISPRO (NovoLOG) PER UNIT SC SCH ×4 (08:49→22:23)
[2023-01-17] MEDS: GABAPENTIN 100 MG CAP PO SCH ×2 (08:49→22:22)
[2023-01-17] MEDS: CitaloPRAM (CeleXA) 20 MG TAB PO SCH (08:52)
[2023-01-17 10:00] VITALS: BP 120/77
[2023-01-17 14:00] VITALS: BP 148/80
[2023-01-17 18:00] VITALS: BP 120/74
[2023-01-17 21:00] VITALS: BP 150/90
[2023-01-17] MEDS: SIMVASTATIN 20 MG TAB PO SCH (22:22)
[2023-01-17] MEDS: LevoFLOXacin 750 MG TABLET PO SCH (22:22)
[2023-01-17] MEDS: LEVEMIR (INSULIN DETEMIR) 1 UNITS/0.01ML SC SCH (22:23)
[2023-01-17] MEDS ORDERED: MAG SULF 1GM/100ML (MAG RUN) 1 GM in IV 1 EA IV ONE (22:25)
[2023-01-18 02:26] VITALS: BP 149/59
[2023-01-18 06:00] VITALS: BP 145/90
[2023-01-18 06:08] LABS: HEMOGLOBIN 9.2 g/dl (12.0-15.5); MEAN CORPUSCULAR HEMOGLOBIN 26.1 pg (27.0-33.0); MEAN CORPUSCULAR HGB CONC 30.7 g/dl (32.0-36.5); MEAN CORPUSCULAR VOLUME 85.2 fl (80.0-96.0); PLATELET COUNT, AUTOMATED 379 10^3/uL (150-450); RED BLOOD COUNT 3.52 10^6/uL (4.00-5.40); WHITE BLOOD COUNT 11.1 10^3/uL (4.0-10.0)
[2023-01-18 06:44] LABS: BLOOD UREA NITROGEN 6 MG/DL (9-23); CALCIUM LEVEL 8.7 MG/DL (8.3-10.6); CARBON DIOXIDE LEVEL 31 MMOL/L (20-31); CHLORIDE LEVEL 98 MMOL/L (98-107); GLOMERULAR FILTRATION RATE > 60.0 (>39); GLUCOSE, FASTING 189 MG/DL (74-106); POTASSIUM SERUM 4.3 MMOL/L (3.5-5.1); SODIUM LEVEL 134 MMOL/L (136-145)
[2023-01-18] MEDS: GABAPENTIN 100 MG CAP PO SCH ×2 (09:11→22:03)
[2023-01-18] MEDS: CitaloPRAM (CeleXA) 20 MG TAB PO SCH (09:11)
[2023-01-18] MEDS: INSULIN LISPRO (NovoLOG) PER UNIT SC SCH ×4 (09:12→22:04)
[2023-01-18] MEDS: ENOXAPARIN 40MG/0.4ML SYRINGE (J1650 PER 10MG) SC SCH (09:13)
[2023-01-18 10:00] VITALS: BP 136/78
[2023-01-18 14:00] VITALS: BP 116/60
[2023-01-18 18:00] VITALS: BP 138/86
[2023-01-18 20:00] VITALS: BP 133/68
[2023-01-18] MEDS: LevoFLOXacin 750 MG TABLET PO SCH (22:03)
[2023-01-18] MEDS: SIMVASTATIN 20 MG TAB PO SCH (22:04)
[2023-01-18] MEDS: ACETAMINOPHEN TAB 650MG DOSE (2X325MG) PO PRN (22:05)
[2023-01-18] MEDS: LEVEMIR (INSULIN DETEMIR) 1 UNITS/0.01ML SC SCH (22:05)
[2023-01-19] VITALS: BP 146/79
[2023-01-19 06:00] VITALS: BP 115/70
[2023-01-19 06:19] LABS: HEMATOCRIT 29.9 % (36.0-47.0); HEMOGLOBIN 9.2 g/dl (12.0-15.5); MEAN CORPUSCULAR HEMOGLOBIN 25.8 pg (27.0-33.0); MEAN CORPUSCULAR HGB CONC 30.8 g/dl (32.0-36.5); PLATELET COUNT, AUTOMATED 376 10^3/uL (150-450); RED BLOOD COUNT 3.56 10^6/uL (4.00-5.40); WHITE BLOOD COUNT 8.7 10^3/uL (4.0-10.0)
[2023-01-19 06:44] LABS: BLOOD UREA NITROGEN 7 MG/DL (9-23); CARBON DIOXIDE LEVEL 32 MMOL/L (20-31); CHLORIDE LEVEL 100 MMOL/L (98-107); CREATININE FOR GFR 0.45 MG/DL (0.55-1.30); GLOMERULAR FILTRATION RATE > 60.0 (>39); GLUCOSE, FASTING 77 MG/DL (74-106); SODIUM LEVEL 136 MMOL/L (136-145)
[2023-01-19] MEDS: INSULIN LISPRO (NovoLOG) PER UNIT SC SCH ×4 (07:30→22:05)
[2023-01-19] MEDS ORDERED: MAG SULF 1GM/100ML (MAG RUN) 1 GM in IV 1 EA IV ONE (08:30)
[2023-01-19] MEDS: CitaloPRAM (CeleXA) 20 MG TAB PO SCH (08:47)
[2023-01-19] MEDS: GABAPENTIN 100 MG CAP PO SCH ×2 (08:47→22:34)
[2023-01-19] MEDS: ENOXAPARIN 40MG/0.4ML SYRINGE (J1650 PER 10MG) SC SCH (09:30)
[2023-01-19 10:00] VITALS: BP 111/58
[2023-01-19 14:00] VITALS: BP 126/69
[2023-01-19 18:00] VITALS: BP 123/68
[2023-01-19 20:00] VITALS: BP 114/63
[2023-01-19] MEDS: LevoFLOXacin 750 MG TABLET PO SCH (22:34)
[2023-01-19] MEDS: LEVEMIR (INSULIN DETEMIR) 1 UNITS/0.01ML SC SCH (22:35)
[2023-01-19] MEDS: SIMVASTATIN 20 MG TAB PO SCH (22:35)
[2023-01-19] MEDS: RAMELTEON 8 MG TAB (ROZEREM) PO PRN (22:35)
[2023-01-19] MEDS: ACETAMINOPHEN TAB 650MG DOSE (2X325MG) PO PRN (22:35)
[2023-01-20] VITALS (7 sets, daily range): BP systolic 102–118; BP diastolic 62–75
[2023-01-20 06:29] LABS: HEMATOCRIT 28.7 % (36.0-47.0); HEMOGLOBIN 8.9 g/dl (12.0-15.5); MEAN CORPUSCULAR HEMOGLOBIN 26.6 pg (27.0-33.0); MEAN CORPUSCULAR VOLUME 85.7 fl (80.0-96.0); PLATELET COUNT, AUTOMATED 354 10^3/uL (150-450); RED BLOOD COUNT 3.35 10^6/uL (4.00-5.40); WHITE BLOOD COUNT 7.6 10^3/uL (4.0-10.0)
[2023-01-20 07:03] LABS: BLOOD UREA NITROGEN 11 MG/DL (9-23); CALCIUM LEVEL 8.7 MG/DL (8.3-10.6); CARBON DIOXIDE LEVEL 32 MMOL/L (20-31); CHLORIDE LEVEL 99 MMOL/L (98-107); CREATININE FOR GFR 0.54 MG/DL (0.55-1.30); GLOMERULAR FILTRATION RATE > 60.0 (>39); GLUCOSE, FASTING 90 MG/DL (74-106); MAGNESIUM LEVEL 1.8 MG/DL (1.8-2.4); POTASSIUM SERUM 4.2 MMOL/L (3.5-5.1); SODIUM LEVEL 136 MMOL/L (136-145)
[2023-01-20] MEDS: INSULIN LISPRO (NovoLOG) PER UNIT SC SCH ×4 (07:30→20:09)
[2023-01-20] MEDS: GABAPENTIN 100 MG CAP PO SCH ×2 (09:29→20:07)
[2023-01-20] MEDS: CitaloPRAM (CeleXA) 20 MG TAB PO SCH (09:29)
[2023-01-20 09:36] LABS: INR 1.18; PROTHROMBIN TIME 15.3 SECONDS (12.5-14.5)
[2023-01-20] MEDS ORDERED: LIDOCAINE 1% MDV 20ML VIAL As Ordered ONE (14:27)
[2023-01-20] MEDS: LevoFLOXacin 750 MG TABLET PO SCH (20:07)
[2023-01-20] MEDS: SIMVASTATIN 20 MG TAB PO SCH (20:08)
[2023-01-20] MEDS: LEVEMIR (INSULIN DETEMIR) 1 UNITS/0.01ML SC SCH (20:08)
[2023-01-20] MEDS: RAMELTEON 8 MG TAB (ROZEREM) PO PRN (20:09)
[2023-01-20] MEDS: ACETAMINOPHEN TAB 650MG DOSE (2X325MG) PO PRN (20:11)
[2023-01-21] VITALS: BP 116/64
[2023-01-21 06:00] VITALS: BP 118/64
[2023-01-21 06:04] LABS: HEMATOCRIT 28.8 % (36.0-47.0); HEMOGLOBIN 8.8 g/dl (12.0-15.5); MEAN CORPUSCULAR HEMOGLOBIN 25.7 pg (27.0-33.0); MEAN CORPUSCULAR HGB CONC 30.6 g/dl (32.0-36.5); MEAN CORPUSCULAR VOLUME 84.2 fl (80.0-96.0); PLATELET COUNT, AUTOMATED 382 10^3/uL (150-450); RED BLOOD COUNT 3.42 10^6/uL (4.00-5.40); WHITE BLOOD COUNT 9.3 10^3/uL (4.0-10.0)
[2023-01-21 06:34] LABS: BLOOD UREA NITROGEN 9 MG/DL (9-23); CALCIUM LEVEL 8.9 MG/DL (8.3-10.6); CARBON DIOXIDE LEVEL 31 MMOL/L (20-31); CHLORIDE LEVEL 99 MMOL/L (98-107); CREATININE FOR GFR 0.54 MG/DL (0.55-1.30); GLOMERULAR FILTRATION RATE > 60.0 (>39); GLUCOSE, FASTING 90 MG/DL (74-106); SODIUM LEVEL 134 MMOL/L (136-145)
[2023-01-21] MEDS: INSULIN LISPRO (NovoLOG) PER UNIT SC SCH ×2 (07:30→12:17)
[2023-01-21 09:00] VITALS: BP 108/54
[2023-01-21] MEDS: GABAPENTIN 100 MG CAP PO SCH (09:31)
[2023-01-21] MEDS: CitaloPRAM (CeleXA) 20 MG TAB PO SCH (09:31)
[2023-01-21] MEDS: ENOXAPARIN 40MG/0.4ML SYRINGE (J1650 PER 10MG) SC SCH (09:35)
[2023-01-21] MEDS ORDERED: GLUC1TES2 XX ×2 (10:02→10:36)
[2023-01-21] MEDS ORDERED: BLOOKIT21 XX ×2 (10:02→10:36)
[2023-01-21] MEDS ORDERED: INSU100I48 SQ ×2 (10:02→10:29)
[2023-01-21] MEDS ORDERED: DEXT4TAB83 PO (10:02)
[2023-01-21] MEDS ORDERED: LANC30MI XX ×2 (10:02→10:36)
[2023-01-21] MEDS ORDERED: PEN1MIS21 SC ×2 (10:02→10:36)
[2023-01-21] MEDS ORDERED: ALCOPAD25 TOP ×2 (10:02→10:36)
[2023-01-21] MEDS ORDERED: METF-839 PO (10:03)
[2023-01-23] MEDS ORDERED: CEFD300C41 (11:37)
== END 2023-01-21 15:08 | DRG 180 ==
LOC: M MSPAV 18:19
PROVIDERS: ADMIT Family Medicine; ATTEND Student in an Organized Health Care Education/Training Program
PROC: 0BBG3ZX Excision of Left Upper Lung Lobe, Percutaneous Approach, Diagnostic (ICD-10-PCS; principal; 2023-01-20 11:30)
DX: C34.12 Malignant neoplasm of upper lobe, left bronchus or lung (principal); J18.9 Pneumonia, unspecified organism; G93.41 Metabolic encephalopathy; E11.65 Type 2 diabetes mellitus with hyperglycemia; I10 Essential (primary) hypertension; D64.9 Anemia, unspecified; K21.9 Gastro-esophageal reflux disease without esophagitis; E78.5 Hyperlipidemia, unspecified; M19.90 Unspecified osteoarthritis, unspecified site; R29.6 Repeated falls; R41.82 Altered mental status, unspecified; E87.6 Hypokalemia; F32.A Depression, unspecified; J44.9 Chronic obstructive pulmonary disease, unspecified; Z87.891 Personal history of nicotine dependence; Z88.8 Allergy status to other drugs, medicaments and biological substances; Z79.899 Other long term (current) drug therapy; Z96.643 Presence of artificial hip joint, bilateral; Z98.41 Cataract extraction status, right eye; Z98.42 Cataract extraction status, left eye; R19.7 Diarrhea, unspecified

== ENCOUNTER → 2023-01-15 | Outpatient (REF) | payer MEDICARE ==
[~2023-01-15] MED LIST changes: +ALCOPAD25 TOP; +AMLO1TAB24 PO; +BLOOKIT21 XX; +CEFD300C41; +D3 H2000 PO; +DEXT4TAB83 PO; +FLUT15.820 NARES; +GABA-1171 PO; +GLUC1TES2 XX; +INSU100I48 SQ; +LANC30MI XX; +METF-839 PO; +OMEP-173 PO; +PEN1MIS21 SC; +POTA-151 PO
== END ==
LOC: M SFHCADAM 12:33
PROVIDERS: ATTEND Physician Assistant
DX: D72.829 Elevated white blood cell count, unspecified (principal); Z79.899 Other long term (current) drug therapy

== ENCOUNTER → 2023-01-31 | Outpatient (CLI) | payer MEDICARE ==
[~2023-01-31] MED LIST changes: +ALCOPAD25 TOP; +AMLO1TAB24 PO; +BLOOKIT21 XX; +CEFD300C41; +D3 H2000 PO; +DEXT4TAB83 PO; +FLUT15.820 NARES; +GABA-1171 PO; +GLUC1TES2 XX; +INSU100I48 SQ; +LANC30MI XX; +LIDOCAINE 2% 100MG/5ML SDV (FOR ANES.) As Ordered ONE; +METF-839 PO; +OMEP-173 PO; +PEN1MIS21 SC; +POTA-151 PO; +propofoL 200 MG/20 ML VIAL As Ordered ONE
== END ==
LOC: M ONCR 10:00
PROVIDERS: ATTEND General Practice
DX: C34.12 Malignant neoplasm of upper lobe, left bronchus or lung (principal); C34.11 Malignant neoplasm of upper lobe, right bronchus or lung; F17.218 Nicotine dependence, cigarettes, with other nicotine-induced disorders; E11.9 Type 2 diabetes mellitus without complications; E78.5 Hyperlipidemia, unspecified; I10 Essential (primary) hypertension; J44.9 Chronic obstructive pulmonary disease, unspecified; M51.9 Unspecified thoracic, thoracolumbar and lumbosacral intervertebral disc disorder; Z79.4 Long term (current) use of insulin; Z79.51 Long term (current) use of inhaled steroids; Z79.84 Long term (current) use of oral hypoglycemic drugs; Z79.899 Other long term (current) drug therapy; Z80.49 Family history of malignant neoplasm of other genital organs; Z86.73 Personal history of transient ischemic attack (TIA), and cerebral infarction without residual deficits; Z88.1 Allergy status to other antibiotic agents; Z88.8 Allergy status to other drugs, medicaments and biological substances; Z99.3 Dependence on wheelchair

== ENCOUNTER → 2023-02-04 | Outpatient (CLI) | payer MEDICARE ==
[~2023-02-04] MED LIST changes: -LIDOCAINE 2% 100MG/5ML SDV (FOR ANES.) As Ordered ONE; -propofoL 200 MG/20 ML VIAL As Ordered ONE
== END ==
LOC: M LABSMTC 09:20
PROVIDERS: ATTEND Anesthesiology
DX: Z20.822 Contact with and (suspected) exposure to COVID-19 (principal)

== ENCOUNTER 2023-02-05 11:28 | Outpatient (RCR) | payer MEDICARE ==
[~2023-02-05 11:28] MED LIST changes: -LIDOCAINE 1% MDV 20ML VIAL As Ordered ONE; -MIDAZOLAM INJ 2MG/2ML VIAL As Ordered ONE; -NS 1,000 ML IV SCH; -ceFAZolin 2 GM/D5W 50 ML IV BAG As Ordered ONE; -ceFAZolin SOD 2 GM in IV 1 EA IV ONE; -diphenhydrAMINE 50MG/ML VIAL As Ordered ONE; -fentaNYL 100 MCG/2 ML INJECTION As Ordered ONE
== END 2023-02-07 ==
LOC: M ONCR 11:28
PROVIDERS: ATTEND General Practice
DX: C34.12 Malignant neoplasm of upper lobe, left bronchus or lung (principal); C34.11 Malignant neoplasm of upper lobe, right bronchus or lung

== ENCOUNTER → 2023-02-05 | Outpatient (CLI) | payer MEDICARE ==
[~2023-02-05] MED LIST changes: +LIDOCAINE 1% MDV 20ML VIAL As Ordered ONE; +MIDAZOLAM INJ 2MG/2ML VIAL As Ordered ONE; +NS 1,000 ML IV SCH; +ceFAZolin 2 GM/D5W 50 ML IV BAG As Ordered ONE; +ceFAZolin SOD 2 GM in IV 1 EA IV ONE; +diphenhydrAMINE 50MG/ML VIAL As Ordered ONE; +fentaNYL 100 MCG/2 ML INJECTION As Ordered ONE
[2023-02-05 17:00] VITALS: BP 111/55
== END ==
LOC: M IRPRO 12:28
PROVIDERS: ATTEND Specialist
DX: C34.12 Malignant neoplasm of upper lobe, left bronchus or lung (principal)
CPT/HCPCS: 36561; 99152; C1769; C1788; C1894; J0690; J1200; J2250; J3010

== ENCOUNTER → 2023-02-17 | Outpatient (CLI) | payer MEDICARE | LOC: M PLARAD 12:43 | PROVIDERS: ATTEND Specialist | DX: C34.12 Malignant neoplasm of upper lobe, left bronchus or lung (principal) | CPT/HCPCS: 78815; A9552 ==

== ENCOUNTER → 2023-03-04 | Outpatient (POV) | payer MEDICARE ==
[~2023-03-04] VITALS: Ht 157.5 cm; Wt 59.0 kg
[~2023-03-04] MED LIST changes: +ONDA-84 PO; +PROC10TA5 PO
[2023-03-04 08:35] VITALS: BP 122/57
== END ==
LOC: M IRPOV 08:08
PROVIDERS: ATTEND Radiology Diagnostic Radiology
DX: Z45.2 Encounter for adjustment and management of vascular access device (principal); Z88.1 Allergy status to other antibiotic agents; Z88.8 Allergy status to other drugs, medicaments and biological substances

== ENCOUNTER 2023-03-07 10:44 | Outpatient (RCR) | payer MEDICARE | END 2023-03-09 | LOC: M ONCR 10:44 | PROVIDERS: ATTEND General Practice | DX: C34.12 Malignant neoplasm of upper lobe, left bronchus or lung (principal); C34.11 Malignant neoplasm of upper lobe, right bronchus or lung ==

== ENCOUNTER → 2023-04-09 | Outpatient (RCR) | payer MEDICARE ==
[~2023-04-09] MED LIST changes: +FERR325T3 PO; +LIDO1CRE42 TOP; +MAGN250T9 PO
== END ==
LOC: M ONCR 03-10 10:37
PROVIDERS: ATTEND General Practice
DX: C34.12 Malignant neoplasm of upper lobe, left bronchus or lung (principal); C34.11 Malignant neoplasm of upper lobe, right bronchus or lung

== ENCOUNTER 2023-04-11 10:26 | Outpatient (RCR) | payer MEDICARE | END 2023-05-09 | LOC: M ONCR 10:26 | PROVIDERS: ATTEND General Practice | DX: C34.12 Malignant neoplasm of upper lobe, left bronchus or lung (principal); C34.11 Malignant neoplasm of upper lobe, right bronchus or lung ==

== ENCOUNTER → 2023-04-21 | Outpatient (CLI) | payer MEDICARE | LOC: M ADAMS 10:14 | PROVIDERS: ATTEND Family Medicine | DX: M54.50 Low back pain, unspecified (principal) ==

== ENCOUNTER 2023-06-17 14:28 | Inpatient (IN) | payer MEDICARE ==
[~2023-06-17] VITALS: Ht 160 cm; Wt 62.9 kg
[~2023-06-17 14:28] MED LIST changes: -LIDO1CRE42 TOP; +LIDO30CR18 TOP
[2023-06-17 15:41] LABS: HEMATOCRIT 39.1 % (36.0-47.0); HEMOGLOBIN 13.6 g/dl (12.0-15.5); MEAN CORPUSCULAR HEMOGLOBIN 31.4 pg (27.0-33.0); MEAN CORPUSCULAR HGB CONC 34.8 g/dl (32.0-36.5); MEAN CORPUSCULAR VOLUME 90.3 fl (80.0-96.0); PLATELET COUNT, AUTOMATED 259 10^3/uL (150-450); RED BLOOD COUNT 4.33 10^6/uL (4.00-5.40); WHITE BLOOD COUNT 6.8 10^3/uL (4.0-10.0)
[2023-06-17] MEDS ORDERED: SODIUM CHLORIDE 0.9% 1000ML IV SCH (15:50)
[2023-06-17 16:03] LABS: CK-MB VALUE MASS 1.4 NG/ML (<3.6)
[2023-06-17 16:05] LABS: MB/CK RELATIVE INDEX 3.5 (< OR =4)
[2023-06-17 16:07] LABS: THYROID STIMULATING HORMONE 1.964 uIU/ML (0.55-4.78)
[2023-06-17 16:09] LABS: URIC ACID 13.2 MG/DL (3.1-7.8)
[2023-06-17 16:12] LABS: ALBUMIN 3.5 G/DL (3.2-5.2); BILIRUBIN,DIRECT 0.4 MG/DL (<0.4); BILIRUBIN,TOTAL 0.7 MG/DL (0.3-1.2); CALCIUM LEVEL 8.8 MG/DL (8.3-10.6); CREATININE FOR GFR 2.95 MG/DL (0.55-1.30); GLOMERULAR FILTRATION RATE 16.5 (>39); POTASSIUM SERUM 3.1 MMOL/L (3.5-5.1); TOTAL PROTEIN 6.7 G/DL (5.7-8.2)
[2023-06-17] MEDS ORDERED: ONDANSETRON 4MG 2ML VIAL IV ONE (16:35)
[2023-06-17 17:00] LABS: ATYPICAL LYMPH 1 % (0-5); LYMPHOCYTES 6 % (16-44); METAMYELOCYTES 1 % (0-0); MONOCYTES 8 % (0-5); NEUTROPHILS 65 % (28-66); PLATELET ESTIMATE NORMAL (NORMAL)
[2023-06-17 17:06] LABS: CK-MB VALUE MASS < 1.0 NG/ML (<3.6)
[2023-06-17 17:07] LABS: CPK CREATINE PHOSPHOKINASE 42 U/L (34-145); MB/CK RELATIVE INDEX 2.38 (< OR =4)
[2023-06-17] MEDS ORDERED: PIPERACILLIN/TAZOBACTAM SOD 2.25 GM in D5W MINI-BAG PLUS 50 ML IV ONE (18:00)
[2023-06-17] MEDS ORDERED: NS 1,000 ML IV ONE (18:35)
[2023-06-17] MEDS ORDERED: MED REC IN PROGRESS XX SCH (19:00)
[2023-06-17] MEDS ORDERED: INSU100I48 SQ (19:25)
[2023-06-17] MEDS ORDERED: HOME MED LIST COMPLETE! XX SCH (19:30)
[2023-06-17] MEDS ORDERED: GLUCAGON INJ 1MG VIAL SC PRN (20:55)
[2023-06-17] MEDS ORDERED: NS 1,000 ML IV SCH (20:55)
[2023-06-17] MEDS ORDERED: GLUCOSE 4GM CHEW TABLET PO PRN (20:55)
[2023-06-17] MEDS ORDERED: DEXTROSE 50% 50ML SYRINGE IV PRN (20:55)
[2023-06-17] MEDS ORDERED: ALBUTEROL 90 MCG/ACT 8GM HFA INHALER INH PRN (21:00)
[2023-06-17] MEDS ORDERED: HYDROMORPHONE HCL 0.5 MG/ 0.5 ML SYRINGE IV PRN ×2 (21:15)
[2023-06-17] MEDS ORDERED: MORPHINE 4 MG/ML 1ML VIAL IV PRN (21:50)
[2023-06-17] MEDS ORDERED: MORPHINE 2 MG/ML 1ML VIAL IV PRN (21:50)
[2023-06-17] MEDS ORDERED: KCL 10MEQ/100ML SWI (KRUN) 10 MEQ in IV 1 EA IV SCH ×2 (22:00→23:00)
[2023-06-17] MEDS ORDERED: CALCIUM GLUCONATE 1,000 MG in D5W MINI-BAG PLUS 100 ML IV ONE (22:00)
[2023-06-18] MEDS ORDERED: KCL 40MEQ IN D5/NS 1000ML 1,000 ML IV SCH
[2023-06-18] MEDS ORDERED: INSULIN LISPRO (NovoLOG) PER UNIT SC SCH
[2023-06-18] MEDS: PANTOPRAZOLE 40MG VIAL IV SCH ×2 (00:40→22:33)
[2023-06-18] MEDS: PIPERACILLIN/TAZOBACTAM SOD 2.25 GM in D5W MINI-BAG PLUS 50 ML IV SCH ×4 (02:20→22:33)
[2023-06-18] MEDS: INSULIN LISPRO (NovoLOG) PER UNIT SC SCH ×4 (05:52→18:07)
[2023-06-18] MEDS: HYDROMORPHONE HCL 0.5 MG/ 0.5 ML SYRINGE IV PRN ×5 (05:59→18:38)
[2023-06-18 07:48] LABS: HEMATOCRIT 35.9 % (36.0-47.0); HEMOGLOBIN 12.3 g/dl (12.0-15.5); MEAN CORPUSCULAR HEMOGLOBIN 31.8 pg (27.0-33.0); MEAN CORPUSCULAR HGB CONC 34.3 g/dl (32.0-36.5); MEAN CORPUSCULAR VOLUME 92.8 fl (80.0-96.0); PLATELET COUNT, AUTOMATED 226 10^3/uL (150-450); RED BLOOD COUNT 3.87 10^6/uL (4.00-5.40)
[2023-06-18 07:55] LABS: ALBUMIN 2.7 G/DL (3.2-5.2); CREATININE FOR GFR 1.64 MG/DL (0.55-1.30); GLOMERULAR FILTRATION RATE 32.4 (>39); MAGNESIUM LEVEL 1.8 MG/DL (1.8-2.4); PHOSPHORUS LEVEL 2.9 MG/DL (2.4-5.1); POTASSIUM SERUM 3.2 MMOL/L (3.5-5.1)
[2023-06-18] MEDS: HEPARIN SOD (PORCINE) 5000UNITS/ML 1ML VIAL/SYRINGE SC SCH ×2 (08:20→22:33)
[2023-06-18] MEDS: D5W/0.9% SODIUM CHLORIDE 1,000 ML IV SCH ×2 (08:20→18:38)
[2023-06-18 08:27] LABS: ATYPICAL LYMPH 2 % (0-5); LYMPHOCYTES 5 % (16-44); MONOCYTES 7 % (0-5); NEUTROPHILS 80 % (28-66); PLATELET ESTIMATE NORMAL (NORMAL)
[2023-06-18 08:28] LABS: TOTAL PROTEIN,RANDOM URINE 38.1 MG/DL (0.0-14.0)
[2023-06-18 08:33] LABS: CREATININE,RANDOM URINE 59.5 MG/DL
[2023-06-18] MEDS: LIDOCAINE 5% (LIDODERM) PATCH TD SCH (11:21)
[2023-06-18 19:59] VITALS: BP 119/77; TEMP 97.1; O2SAT 95
[2023-06-19] VITALS (16 sets, daily range): BP systolic 100–131; BP diastolic 54–72; TEMP 97.1–98.1; O2SAT 90–100
[2023-06-19] MEDS: RAMELTEON 8 MG TAB (ROZEREM) PO SCH ×2 (01:30→21:25)
[2023-06-19] MEDS ORDERED: diphenhydrAMINE 25MG CAP PO ONE (01:30)
[2023-06-19] MEDS: INSULIN LISPRO (NovoLOG) PER UNIT SC SCH ×4 (01:31→17:54)
[2023-06-19] MEDS: PIPERACILLIN/TAZOBACTAM SOD 2.25 GM in D5W MINI-BAG PLUS 50 ML IV SCH ×3 (04:32→10:35)
[2023-06-19] MEDS: D5W/0.9% SODIUM CHLORIDE 1,000 ML IV SCH (04:32)
[2023-06-19 06:30] LABS: HEMATOCRIT 37.8 % (36.0-47.0); HEMOGLOBIN 12.3 g/dl (12.0-15.5); MEAN CORPUSCULAR HEMOGLOBIN 31.7 pg (27.0-33.0); MEAN CORPUSCULAR HGB CONC 32.5 g/dl (32.0-36.5); MEAN CORPUSCULAR VOLUME 97.4 fl (80.0-96.0); PLATELET COUNT, AUTOMATED 210 10^3/uL (150-450); RED BLOOD COUNT 3.88 10^6/uL (4.00-5.40); WHITE BLOOD COUNT 6.1 10^3/uL (4.0-10.0)
[2023-06-19 06:53] LABS: ALBUMIN 2.5 G/DL (3.2-5.2); ALKALINE PHOSPHATASE 76 U/L (46-116); ALT/SGPT 12 U/L (7.0-40); AST/SGOT 15 U/L (<34); BILIRUBIN,TOTAL 0.5 MG/DL (0.3-1.2); BLOOD UREA NITROGEN 30 MG/DL (9-23); CALCIUM LEVEL 8.3 MG/DL (8.3-10.6); CARBON DIOXIDE LEVEL 32 MMOL/L (20-31); CHLORIDE LEVEL 102 MMOL/L (98-107); CREATININE FOR GFR 0.73 MG/DL (0.55-1.30); GLOMERULAR FILTRATION RATE > 60.0 (>39); GLUCOSE, FASTING 179 MG/DL (74-106); MAGNESIUM LEVEL 1.8 MG/DL (1.8-2.4); POTASSIUM SERUM 2.8 MMOL/L (3.5-5.1); SODIUM LEVEL 142 MMOL/L (136-145); TOTAL PROTEIN 5.2 G/DL (5.7-8.2)
[2023-06-19 07:02] LABS: BASOPHILS 1 % (0-1); LYMPHOCYTES 6 % (16-44); MONOCYTES 7 % (0-5); NEUTROPHILS 81 % (28-66); PLATELET ESTIMATE NORMAL (NORMAL)
[2023-06-19] MEDS: KCL 10MEQ/100ML SWI (KRUN) 10 MEQ in IV 1 EA IV SCH ×4 (09:00→10:32)
[2023-06-19] MEDS: LIDOCAINE 5% (LIDODERM) PATCH TD SCH (09:28)
[2023-06-19] MEDS: HEPARIN SOD (PORCINE) 5000UNITS/ML 1ML VIAL/SYRINGE SC SCH ×2 (09:28→21:26)
[2023-06-19] MEDS: KCL 40MEQ IN D5/NS 1000ML 1,000 ML IV SCH (09:41)
[2023-06-19] MEDS ORDERED: KCL 20MEQ IN 100ML SWI (KRUN) 20 MEQ in IV 1 EA IV ONE ×4 (11:00→12:55)
[2023-06-19] MEDS ORDERED: LIDOCAINE 4% CREAM 5GM (LMX4) TOP ONE (12:00)
[2023-06-19 12:38] LABS: BLOOD UREA NITROGEN 25 MG/DL (9-23); CALCIUM LEVEL 8.1 MG/DL (8.3-10.6); CARBON DIOXIDE LEVEL 34 MMOL/L (20-31); CHLORIDE LEVEL 100 MMOL/L (98-107); CREATININE FOR GFR 0.63 MG/DL (0.55-1.30); GLOMERULAR FILTRATION RATE > 60.0 (>39); GLUCOSE, FASTING 157 MG/DL (74-106); POTASSIUM SERUM 2.8 MMOL/L (3.5-5.1); SODIUM LEVEL 141 MMOL/L (136-145)
[2023-06-19] MEDS: PIPERACILLIN/TAZOBACTAM SOD 3.375 GM in D5W MINI-BAG PLUS 50 ML IV SCH ×2 (15:55→21:26)
[2023-06-19] MEDS: HYDROMORPHONE HCL 0.5 MG/ 0.5 ML SYRINGE IV PRN (15:56)
[2023-06-20] VITALS (21 sets, daily range): BP systolic 112–142; BP diastolic 61–87; TEMP 97.2–98.6; O2SAT 82–100
[2023-06-20] MEDS: PANTOPRAZOLE 40MG VIAL IV SCH ×2 (01:37→22:22)
[2023-06-20] MEDS: KCL 40MEQ IN D5/NS 1000ML 1,000 ML IV SCH ×3 (01:37→13:29)
[2023-06-20] MEDS: INSULIN LISPRO (NovoLOG) PER UNIT SC SCH ×5 (01:38→23:28)
[2023-06-20] MEDS: PIPERACILLIN/TAZOBACTAM SOD 3.375 GM in D5W MINI-BAG PLUS 50 ML IV SCH ×4 (05:27→22:22)
[2023-06-20 05:41] LABS: BASO % 0.7 % (0.0-1.0); EOS % 0.3 % (0.0-3.0); HEMOGLOBIN 11.6 g/dl (12.0-15.5); LYMPH # 0.3 10^3/uL (1.5-5.0); LYMPH % 5.7 % (24.0-44.0); MEAN CORPUSCULAR HEMOGLOBIN 31.2 pg (27.0-33.0); MEAN CORPUSCULAR HGB CONC 32.2 g/dl (32.0-36.5); MEAN CORPUSCULAR VOLUME 96.8 fl (80.0-96.0); MONO # 0.5 10^3/uL (0.0-0.8); MONO % 9.1 % (2.0-8.0); NEUTROPHILS # 4.8 10^3/uL (1.5-8.5); NEUTROPHILS % 82.3 % (36.0-66.0); PLATELET COUNT, AUTOMATED 204 10^3/uL (150-450); RED BLOOD COUNT 3.72 10^6/uL (4.00-5.40); WHITE BLOOD COUNT 5.8 10^3/uL (4.0-10.0)
[2023-06-20 06:06] LABS: ALBUMIN 2.3 G/DL (3.2-5.2); ALKALINE PHOSPHATASE 73 U/L (46-116); ALT/SGPT 13 U/L (7.0-40); AST/SGOT 10 U/L (<34); BILIRUBIN,TOTAL 0.6 MG/DL (0.3-1.2); BLOOD UREA NITROGEN 17 MG/DL (9-23); CALCIUM LEVEL 7.8 MG/DL (8.3-10.6); CARBON DIOXIDE LEVEL 31 MMOL/L (20-31); CHLORIDE LEVEL 104 MMOL/L (98-107); CREATININE FOR GFR 0.54 MG/DL (0.55-1.30); GLOMERULAR FILTRATION RATE > 60.0 (>39); GLUCOSE, FASTING 199 MG/DL (74-106); MAGNESIUM LEVEL 1.6 MG/DL (1.8-2.4); POTASSIUM SERUM 3.8 MMOL/L (3.5-5.1); SODIUM LEVEL 141 MMOL/L (136-145); TOTAL PROTEIN 5.1 G/DL (5.7-8.2)
[2023-06-20] MEDS: MAG SULF 1GM/100ML (MAG RUN) 1 GM in IV 1 EA IV SCH ×2 (09:52→11:40)
[2023-06-20] MEDS: HEPARIN SOD (PORCINE) 5000UNITS/ML 1ML VIAL/SYRINGE SC SCH ×2 (09:53→20:25)
[2023-06-20] MEDS: LIDOCAINE 5% (LIDODERM) PATCH TD SCH (09:54)
[2023-06-20] MEDS ORDERED: LIDOCAINE 1% MDV 20ML VIAL As Ordered ONE (11:06)
[2023-06-20] MEDS: HYDROMORPHONE HCL 0.5 MG/ 0.5 ML SYRINGE IV PRN ×3 (13:28→23:54)
[2023-06-20] MEDS ORDERED: AMINO AC/ELECTROLYTE/DEX/CALC 2,000 ML IV SCH (18:00)
[2023-06-20] MEDS ORDERED: FAT EMULSION IV 250 ML IV ONE (18:00)
[2023-06-20] MEDS ORDERED: INSULIN LISPRO (NovoLOG) PER UNIT SC SCH (18:00)
[2023-06-20] MEDS: FLEET OIL RETENTION ENEMA PR ONE ×2 (18:06→23:55)
[2023-06-20] MEDS: RAMELTEON 8 MG TAB (ROZEREM) PO SCH (20:25)
[2023-06-21] VITALS (22 sets, daily range): BP systolic 120–148; BP diastolic 53–66; TEMP 96.8–97.6; O2SAT 89–100
[2023-06-21] MEDS: PIPERACILLIN/TAZOBACTAM SOD 3.375 GM in D5W MINI-BAG PLUS 50 ML IV SCH ×4 (04:09→23:16)
[2023-06-21] MEDS: INSULIN LISPRO (NovoLOG) PER UNIT SC SCH ×4 (05:06→23:21)
[2023-06-21 05:15] LABS: BASO # 0.1 10^3/uL (0.0-0.2); EOS # 0.1 10^3/uL (0.0-0.5); EOS % 1.7 % (0.0-3.0); HEMATOCRIT 34.7 % (36.0-47.0); HEMOGLOBIN 11.3 g/dl (12.0-15.5); LYMPH # 0.4 10^3/uL (1.5-5.0); LYMPH % 5.7 % (24.0-44.0); MEAN CORPUSCULAR HEMOGLOBIN 31.3 pg (27.0-33.0); MEAN CORPUSCULAR HGB CONC 32.6 g/dl (32.0-36.5); MEAN CORPUSCULAR VOLUME 96.1 fl (80.0-96.0); MONO # 0.6 10^3/uL (0.0-0.8); MONO % 7.8 % (2.0-8.0); NEUTROPHILS # 5.7 10^3/uL (1.5-8.5); NEUTROPHILS % 80.2 % (36.0-66.0); PLATELET COUNT, AUTOMATED 183 10^3/uL (150-450); RED BLOOD COUNT 3.61 10^6/uL (4.00-5.40)
[2023-06-21 05:36] LABS: ALBUMIN 2.4 G/DL (3.2-5.2); ALKALINE PHOSPHATASE 68 U/L (46-116); ALT/SGPT 13 U/L (7.0-40); AST/SGOT 16 U/L (<34); BILIRUBIN,TOTAL 0.6 MG/DL (0.3-1.2); BLOOD UREA NITROGEN 10 MG/DL (9-23); CALCIUM LEVEL 7.9 MG/DL (8.3-10.6); CARBON DIOXIDE LEVEL 29 MMOL/L (20-31); CHLORIDE LEVEL 98 MMOL/L (98-107); CREATININE FOR GFR 0.48 MG/DL (0.55-1.30); GLOMERULAR FILTRATION RATE > 60.0 (>39); GLUCOSE, FASTING 185 MG/DL (74-106); MAGNESIUM LEVEL 1.5 MG/DL (1.8-2.4); POTASSIUM SERUM 3.3 MMOL/L (3.5-5.1); SODIUM LEVEL 135 MMOL/L (136-145); TOTAL PROTEIN 5.1 G/DL (5.7-8.2)
[2023-06-21] MEDS: MAG SULF 1GM/100ML (MAG RUN) 100 ML IV SCH ×2 (06:42→10:07)
[2023-06-21] MEDS ORDERED: NS IV ONE (09:00)
[2023-06-21] MEDS ORDERED: POTASSIUM CHLORIDE IV ONE (09:00)
[2023-06-21] MEDS: KCL 20MEQ IN 100ML SWI (KRUN) 20 MEQ in IV 1 EA IV SCH ×4 (09:00→10:00)
[2023-06-21] MEDS: HEPARIN SOD (PORCINE) 5000UNITS/ML 1ML VIAL/SYRINGE SC SCH ×2 (10:07→20:29)
[2023-06-21] MEDS: LIDOCAINE 5% (LIDODERM) PATCH TD SCH (10:08)
[2023-06-21] MEDS: HYDROMORPHONE HCL 0.5 MG/ 0.5 ML SYRINGE IV PRN (10:10)
[2023-06-21] MEDS: KCL 10MEQ/100ML SWI (KRUN) 10 MEQ in IV 1 EA IV SCH ×2 (13:16→17:02)
[2023-06-21] MEDS ORDERED: CALC IV SCH (18:00)
[2023-06-21] MEDS ORDERED: DEX IV SCH (18:00)
[2023-06-21] MEDS ORDERED: ELECTROLYTE IV SCH (18:00)
[2023-06-21] MEDS ORDERED: FAT EMULSION IV 250 ML IV ONE (18:00)
[2023-06-21] MEDS ORDERED: POTASSIUM CHLORIDE IV SCH (18:00)
[2023-06-21] MEDS ORDERED: AMINO AC IV SCH (18:00)
[2023-06-21] MEDS: RAMELTEON 8 MG TAB (ROZEREM) PO SCH (20:29)
[2023-06-21] MEDS: PANTOPRAZOLE 40MG VIAL IV SCH (23:16)
[2023-06-22] VITALS (12 sets, daily range): BP systolic 107–152; BP diastolic 51–77; TEMP 96.1–97.8; O2SAT 91–99
[2023-06-22] MEDS: PIPERACILLIN/TAZOBACTAM SOD 3.375 GM in D5W MINI-BAG PLUS 50 ML IV SCH ×4 (03:36→22:49)
[2023-06-22] MEDS: INSULIN LISPRO (NovoLOG) PER UNIT SC SCH ×3 (05:24→18:01)
[2023-06-22 05:37] LABS: BASO # 0.1 10^3/uL (0.0-0.2); BASO % 1.4 % (0.0-1.0); EOS # 0.1 10^3/uL (0.0-0.5); EOS % 1.2 % (0.0-3.0); HEMATOCRIT 35.4 % (36.0-47.0); HEMOGLOBIN 11.6 g/dl (12.0-15.5); LYMPH # 0.3 10^3/uL (1.5-5.0); LYMPH % 6.3 % (24.0-44.0); MEAN CORPUSCULAR HEMOGLOBIN 31.2 pg (27.0-33.0); MEAN CORPUSCULAR HGB CONC 32.8 g/dl (32.0-36.5); MEAN CORPUSCULAR VOLUME 95.2 fl (80.0-96.0); MONO # 0.4 10^3/uL (0.0-0.8); MONO % 7.6 % (2.0-8.0); NEUTROPHILS % 78.6 % (36.0-66.0); PLATELET COUNT, AUTOMATED 182 10^3/uL (150-450); RED BLOOD COUNT 3.72 10^6/uL (4.00-5.40); WHITE BLOOD COUNT 5.1 10^3/uL (4.0-10.0)
[2023-06-22 05:49] LABS: ALBUMIN 2.3 G/DL (3.2-5.2); ALKALINE PHOSPHATASE 64 U/L (46-116); ALT/SGPT 11 U/L (7.0-40); AST/SGOT 10 U/L (<34); BILIRUBIN,TOTAL 0.5 MG/DL (0.3-1.2); BLOOD UREA NITROGEN 11 MG/DL (9-23); CARBON DIOXIDE LEVEL 33 MMOL/L (20-31); CHLORIDE LEVEL 97 MMOL/L (98-107); CREATININE FOR GFR 0.49 MG/DL (0.55-1.30); GLOMERULAR FILTRATION RATE > 60.0 (>39); GLUCOSE, FASTING 201 MG/DL (74-106); MAGNESIUM LEVEL 1.7 MG/DL (1.8-2.4); POTASSIUM SERUM 3.2 MMOL/L (3.5-5.1); SODIUM LEVEL 138 MMOL/L (136-145); TOTAL PROTEIN 5.2 G/DL (5.7-8.2)
[2023-06-22] MEDS: MAG SULF 1GM/100ML (MAG RUN) 100 ML IV SCH ×2 (06:51→08:15)
[2023-06-22] MEDS ORDERED: LIDOCAINE 1% SDV 30ML VIAL As Ordered ONE (08:08)
[2023-06-22] MEDS ORDERED: fentaNYL 100 MCG/2 ML INJECTION IV PRN (08:10)
[2023-06-22] MEDS ORDERED: LR 1,000 ML IV SCH (08:10)
[2023-06-22] MEDS ORDERED: ONDANSETRON 4MG 2ML VIAL IV PRN (08:10)
[2023-06-22] MEDS ORDERED: ROCURONIUM BROMIDE 50MG/5ML VIAL As Ordered ONE (08:12)
[2023-06-22] MEDS ORDERED: METOCLOPRAMIDE INJ 10MG/2ML VIAL As Ordered ONE (08:12)
[2023-06-22] MEDS ORDERED: propofoL 200 MG/20 ML VIAL As Ordered ONE (08:12)
[2023-06-22] MEDS ORDERED: LIDOCAINE 2% 100MG/5ML SDV (FOR ANES.) As Ordered ONE (08:12)
[2023-06-22] MEDS ORDERED: fentaNYL 100 MCG/2 ML INJECTION As Ordered ONE ×2 (08:13→09:58)
[2023-06-22] MEDS ORDERED: MIDAZOLAM INJ 2MG/2ML VIAL As Ordered ONE (08:14)
[2023-06-22] MEDS: HEPARIN SOD (PORCINE) 5000UNITS/ML 1ML VIAL/SYRINGE SC SCH ×2 (08:15→20:03)
[2023-06-22] MEDS ORDERED: POTASSIUM CHLORIDE IV ONE (09:00)
[2023-06-22] MEDS ORDERED: NS IV ONE (09:00)
[2023-06-22] MEDS ORDERED: ACETAMINOPHEN 1000MG 100ML IV BAG As Ordered ONE (09:25)
[2023-06-22] MEDS ORDERED: SUCCINYLCHOLINE 100MG/5ML SYRINGE As Ordered ONE (09:25)
[2023-06-22] MEDS ORDERED: ZOSYN 3.375GM VIAL As Ordered ONE (09:38)
[2023-06-22] MEDS ORDERED: PHENYLephrine 500MCG 5ML (100MCG/ML) SYRINGE As Ordered ONE (10:34)
[2023-06-22] MEDS ORDERED: SUGAMMADEX SODIUM 500 MG/5 ML VIAL (BRIDION) As Ordered ONE (10:34)
[2023-06-22] MEDS ORDERED: KETOROLAC 60MG 2ML VIAL As Ordered ONE (10:34)
[2023-06-22] MEDS ORDERED: HYDROmorphone HCL 2MG/ML 1ML VIAL As Ordered ONE (10:44)
[2023-06-22] MEDS ORDERED: ESMOLOL INJ 100MG/10ML VIAL As Ordered ONE (10:49)
[2023-06-22] MEDS: LIDOCAINE 5% (LIDODERM) PATCH TD SCH (12:00)
[2023-06-22] MEDS: PROMETHAZINE 25MG/ML 1ML VIAL IV PRN (13:29)
[2023-06-22] MEDS ORDERED: INSULIN LISPRO (NovoLOG) PER UNIT SC SCH (18:00)
[2023-06-22] MEDS ORDERED: DEX IV SCH (18:00)
[2023-06-22] MEDS ORDERED: CALC IV SCH (18:00)
[2023-06-22] MEDS ORDERED: FAT EMULSION IV 250 ML IV ONE (18:00)
[2023-06-22] MEDS ORDERED: ELECTROLYTE IV SCH (18:00)
[2023-06-22] MEDS ORDERED: AMINO AC IV SCH (18:00)
[2023-06-22] MEDS ORDERED: POTASSIUM CHLORIDE IV SCH (18:00)
[2023-06-22] MEDS: RAMELTEON 8 MG TAB (ROZEREM) PO SCH (20:43)
[2023-06-22] MEDS: PANTOPRAZOLE 40MG VIAL IV SCH (22:48)
[2023-06-23] VITALS (18 sets, daily range): BP systolic 115–130; BP diastolic 56–62; TEMP 97.4–97.9; O2SAT 84–99
[2023-06-23] MEDS: INSULIN LISPRO (NovoLOG) PER UNIT SC SCH ×5 (01:22→23:15)
[2023-06-23] MEDS: HYDROMORPHONE HCL 0.5 MG/ 0.5 ML SYRINGE IV PRN ×4 (04:11→20:13)
[2023-06-23] MEDS: PIPERACILLIN/TAZOBACTAM SOD 3.375 GM in D5W MINI-BAG PLUS 50 ML IV SCH (04:11)
[2023-06-23 05:37] LABS: BASO # 0.1 10^3/uL (0.0-0.2); BASO % 0.6 % (0.0-1.0); EOS % 0.2 % (0.0-3.0); HEMATOCRIT 35.7 % (36.0-47.0); HEMOGLOBIN 11.4 g/dl (12.0-15.5); LYMPH # 0.4 10^3/uL (1.5-5.0); LYMPH % 4.9 % (24.0-44.0); MEAN CORPUSCULAR HEMOGLOBIN 31.3 pg (27.0-33.0); MEAN CORPUSCULAR HGB CONC 31.9 g/dl (32.0-36.5); MEAN CORPUSCULAR VOLUME 98.1 fl (80.0-96.0); MONO # 0.4 10^3/uL (0.0-0.8); MONO % 4.2 % (2.0-8.0); NEUTROPHILS % 87.9 % (36.0-66.0); PLATELET COUNT, AUTOMATED 168 10^3/uL (150-450); RED BLOOD COUNT 3.64 10^6/uL (4.00-5.40)
[2023-06-23 06:02] LABS: ALBUMIN 2.4 G/DL (3.2-5.2); ALKALINE PHOSPHATASE 69 U/L (46-116); ALT/SGPT 17 U/L (7.0-40); AST/SGOT 23 U/L (<34); BILIRUBIN,TOTAL 0.3 MG/DL (0.3-1.2); BLOOD UREA NITROGEN 22 MG/DL (9-23); CALCIUM LEVEL 8.1 MG/DL (8.3-10.6); CARBON DIOXIDE LEVEL 28 MMOL/L (20-31); CHLORIDE LEVEL 98 MMOL/L (98-107); GLOMERULAR FILTRATION RATE > 60.0 (>39); GLUCOSE, FASTING 260 MG/DL (74-106); POTASSIUM SERUM 4.3 MMOL/L (3.5-5.1); SODIUM LEVEL 136 MMOL/L (136-145); TOTAL PROTEIN 5.5 G/DL (5.7-8.2)
[2023-06-23] MEDS ORDERED: MOM 30ML SUSPENSION UDC PO ONE (08:45)
[2023-06-23] MEDS: PROMETHAZINE 25MG/ML 1ML VIAL IV PRN (10:22)
[2023-06-23] MEDS: LIDOCAINE 5% (LIDODERM) PATCH TD SCH (10:23)
[2023-06-23] MEDS: HEPARIN SOD (PORCINE) 5000UNITS/ML 1ML VIAL/SYRINGE SC SCH ×2 (10:24→20:12)
[2023-06-23] MEDS ORDERED: FAT EMULSION IV 250 ML IV ONE (18:00)
[2023-06-23] MEDS ORDERED: MULTIVITAMIN -ADULT INJECTION 10 ML, ZINC/COPPER/MANGANESE/SELENIUM 1 ML, POTASSIUM CHL... IV SCH ×4 (18:00)
[2023-06-23] MEDS: RAMELTEON 8 MG TAB (ROZEREM) PO SCH (20:12)
[2023-06-23] MEDS: PANTOPRAZOLE 40MG VIAL IV SCH (23:15)
[2023-06-24] VITALS: BP 166/79; TEMP 97.8; O2SAT 94
[2023-06-24] MEDS: HYDROMORPHONE HCL 0.5 MG/ 0.5 ML SYRINGE IV PRN ×3 (01:34→15:21)
[2023-06-24 04:55] VITALS: BP 144/67; TEMP 97.9; O2SAT 97
[2023-06-24] MEDS: INSULIN LISPRO (NovoLOG) PER UNIT SC SCH ×4 (06:08→23:57)
[2023-06-24 06:45] LABS: BASO % 0.6 % (0.0-1.0); EOS # 0.1 10^3/uL (0.0-0.5); EOS % 1.9 % (0.0-3.0); HEMATOCRIT 32.3 % (36.0-47.0); HEMOGLOBIN 10.6 g/dl (12.0-15.5); LYMPH # 0.4 10^3/uL (1.5-5.0); LYMPH % 7.7 % (24.0-44.0); MEAN CORPUSCULAR HEMOGLOBIN 31.8 pg (27.0-33.0); MEAN CORPUSCULAR HGB CONC 32.8 g/dl (32.0-36.5); MONO # 0.3 10^3/uL (0.0-0.8); MONO % 5.6 % (2.0-8.0); NEUTROPHILS # 3.9 10^3/uL (1.5-8.5); NEUTROPHILS % 80.3 % (36.0-66.0); PLATELET COUNT, AUTOMATED 182 10^3/uL (150-450); RED BLOOD COUNT 3.33 10^6/uL (4.00-5.40); WHITE BLOOD COUNT 4.8 10^3/uL (4.0-10.0)
[2023-06-24 07:15] LABS: ALBUMIN 2.2 G/DL (3.2-5.2); ALKALINE PHOSPHATASE 63 U/L (46-116); ALT/SGPT 13 U/L (7.0-40); AST/SGOT 14 U/L (<34); BILIRUBIN,TOTAL 0.3 MG/DL (0.3-1.2); BLOOD UREA NITROGEN 25 MG/DL (9-23); CALCIUM LEVEL 8.5 MG/DL (8.3-10.6); CARBON DIOXIDE LEVEL 32 MMOL/L (20-31); CHLORIDE LEVEL 100 MMOL/L (98-107); CREATININE FOR GFR 0.78 MG/DL (0.55-1.30); GLOMERULAR FILTRATION RATE > 60.0 (>39); GLUCOSE, FASTING 212 MG/DL (74-106); MAGNESIUM LEVEL 1.9 MG/DL (1.8-2.4); PHOSPHORUS LEVEL 3.2 MG/DL (2.4-5.1); POTASSIUM SERUM 4.8 MMOL/L (3.5-5.1); SODIUM LEVEL 135 MMOL/L (136-145); TOTAL PROTEIN 5.1 G/DL (5.7-8.2)
[2023-06-24 07:32] VITALS: BP 127/75; TEMP 97.3; O2SAT 96
[2023-06-24] MEDS: LIDOCAINE 5% (LIDODERM) PATCH TD SCH (08:43)
[2023-06-24] MEDS: HEPARIN SOD (PORCINE) 5000UNITS/ML 1ML VIAL/SYRINGE SC SCH ×2 (08:44→20:53)
[2023-06-24] MEDS: DOCUSATE SODIUM 100MG CAPSULE PO SCH ×2 (09:00→20:53)
[2023-06-24] MEDS ORDERED: MOM 30ML SUSPENSION UDC PO ONE (10:00)
[2023-06-24 12:17] VITALS: BP 141/63; TEMP 96.3; O2SAT 96
[2023-06-24 16:25] VITALS: BP 150/84; TEMP 98.1; O2SAT 95
[2023-06-24] MEDS ORDERED: AMINO AC/ELECTROLYTE/DEX/CALC 2,000 ML IV SCH (18:00)
[2023-06-24] MEDS ORDERED: FAT EMULSION IV 250 ML IV ONE (18:00)
[2023-06-24] MEDS: RAMELTEON 8 MG TAB (ROZEREM) PO SCH (20:53)
[2023-06-24 21:00] VITALS: BP 151/76; TEMP 98.4; O2SAT 98
[2023-06-24] MEDS: PANTOPRAZOLE 40MG VIAL IV SCH (23:57)
[2023-06-25 05:45] VITALS: BP 147/76; TEMP 98.2; O2SAT 95
[2023-06-25] MEDS: INSULIN LISPRO (NovoLOG) PER UNIT SC SCH ×3 (06:25→17:30)
[2023-06-25 06:27] LABS: BASO % 0.2 % (0.0-1.0); EOS # 0.1 10^3/uL (0.0-0.5); EOS % 1.2 % (0.0-3.0); HEMATOCRIT 32.2 % (36.0-47.0); HEMOGLOBIN 10.5 g/dl (12.0-15.5); LYMPH # 0.4 10^3/uL (1.5-5.0); LYMPH % 7.9 % (24.0-44.0); MEAN CORPUSCULAR HEMOGLOBIN 31.3 pg (27.0-33.0); MEAN CORPUSCULAR HGB CONC 32.6 g/dl (32.0-36.5); MEAN CORPUSCULAR VOLUME 95.8 fl (80.0-96.0); MONO # 0.4 10^3/uL (0.0-0.8); MONO % 6.9 % (2.0-8.0); NEUTROPHILS # 4.1 10^3/uL (1.5-8.5); NEUTROPHILS % 81.6 % (36.0-66.0); PLATELET COUNT, AUTOMATED 191 10^3/uL (150-450); RED BLOOD COUNT 3.36 10^6/uL (4.00-5.40); WHITE BLOOD COUNT 5.1 10^3/uL (4.0-10.0)
[2023-06-25 06:51] LABS: ALBUMIN 2.3 G/DL (3.2-5.2); ALKALINE PHOSPHATASE 62 U/L (46-116); ALT/SGPT 13 U/L (7.0-40); AST/SGOT 16 U/L (<34); BILIRUBIN,TOTAL 0.5 MG/DL (0.3-1.2); BLOOD UREA NITROGEN 26 MG/DL (9-23); CALCIUM LEVEL 8.4 MG/DL (8.3-10.6); CARBON DIOXIDE LEVEL 29 MMOL/L (20-31); CHLORIDE LEVEL 99 MMOL/L (98-107); CREATININE FOR GFR 0.67 MG/DL (0.55-1.30); GLOMERULAR FILTRATION RATE > 60.0 (>39); GLUCOSE, FASTING 254 MG/DL (74-106); MAGNESIUM LEVEL 1.9 MG/DL (1.8-2.4); POTASSIUM SERUM 4.3 MMOL/L (3.5-5.1); SODIUM LEVEL 135 MMOL/L (136-145); TOTAL PROTEIN 5.1 G/DL (5.7-8.2)
[2023-06-25] MEDS: DOCUSATE SODIUM 100MG CAPSULE PO SCH ×2 (08:51→20:49)
[2023-06-25] MEDS: HEPARIN SOD (PORCINE) 5000UNITS/ML 1ML VIAL/SYRINGE SC SCH ×2 (09:09→20:50)
[2023-06-25] MEDS: LIDOCAINE 5% (LIDODERM) PATCH TD SCH (09:09)
[2023-06-25] MEDS: ACETAMINOPHEN TAB 650MG DOSE (2X325MG) PO PRN ×2 (09:10→20:50)
[2023-06-25 14:00] VITALS: BP 145/76; TEMP 98.1; O2SAT 98
[2023-06-25] MEDS ORDERED: ONDANSETRON 4MG TAB PO PRN (15:45)
[2023-06-25] MEDS ORDERED: PROCHLORPERAZINE 5MG TAB PO PRN (15:45)
[2023-06-25] MEDS: GABAPENTIN 100 MG CAP PO SCH (20:49)
[2023-06-25] MEDS: RAMELTEON 8 MG TAB (ROZEREM) PO SCH (20:49)
[2023-06-25] MEDS ORDERED: INSULIN LISPRO (NovoLOG) PER UNIT SC SCH (21:00)
[2023-06-25] MEDS ORDERED: SIMVASTATIN 20 MG TAB PO SCH (21:00)
[2023-06-26 06:00] VITALS: BP 139/76; TEMP 98.2; O2SAT 97
[2023-06-26] MEDS ORDERED: LEVEMIR (INSULIN DETEMIR) 1 UNITS/0.01ML SC SCH (09:00)
[2023-06-26] MEDS ORDERED: FERROUS SULFATE 325MG TAB PO SCH (09:00)
[2023-06-26] MEDS ORDERED: CitaloPRAM (CeleXA) 20 MG TAB PO SCH (09:00)
[2023-06-26] MEDS ORDERED: OMEPRAZOLE 20MG CAP PO SCH (09:00)
[2023-06-26] MEDS: GABAPENTIN 100 MG CAP PO SCH (09:33)
[2023-06-26] MEDS: INSULIN LISPRO (NovoLOG) PER UNIT SC SCH ×2 (09:33→12:00)
[2023-06-26] MEDS: DOCUSATE SODIUM 100MG CAPSULE PO SCH (09:33)
[2023-06-26] MEDS: HEPARIN SOD (PORCINE) 5000UNITS/ML 1ML VIAL/SYRINGE SC SCH (09:34)
[2023-06-26] MEDS: LIDOCAINE 5% (LIDODERM) PATCH TD SCH (09:34)
[2023-06-26] MEDS ORDERED: AMLO1TAB24 PO (10:26)
[2023-06-26] MEDS: ACETAMINOPHEN TAB 650MG DOSE (2X325MG) PO PRN (11:20)
== END 2023-06-26 14:49 | disposition home health service (06) | DRG 336 ==
LOC: EDUNIT# 14:28 → EDBD 14:28 → M ED 14:28 → M ED INP 20:12 → M PCU 06-18 19:50 → M MSPAV 06-24 16:07
PROVIDERS: ADMIT Internal Medicine Nephrology; ATTEND Internal Medicine
PROC: 0DN84ZZ Release Small Intestine, Percutaneous Endoscopic Approach (ICD-10-PCS; principal; 2023-06-17)
DX: K56.50 Intestinal adhesions [bands], unspecified as to partial versus complete obstruction (principal); D84.9 Immunodeficiency, unspecified; N17.9 Acute kidney failure, unspecified; C34.90 Malignant neoplasm of unspecified part of unspecified bronchus or lung; J98.11 Atelectasis; E87.1 Hypo-osmolality and hyponatremia; K21.9 Gastro-esophageal reflux disease without esophagitis; I10 Essential (primary) hypertension; J44.9 Chronic obstructive pulmonary disease, unspecified; E78.5 Hyperlipidemia, unspecified; E11.649 Type 2 diabetes mellitus with hypoglycemia without coma; E87.6 Hypokalemia; R11.2 Nausea with vomiting, unspecified; E86.0 Dehydration; K40.90 Unilateral inguinal hernia, without obstruction or gangrene, not specified as recurrent; G47.00 Insomnia, unspecified; G89.29 Other chronic pain; E83.42 Hypomagnesemia; E83.51 Hypocalcemia; Z92.21 Personal history of antineoplastic chemotherapy; Z92.3 Personal history of irradiation; Z88.8 Allergy status to other drugs, medicaments and biological substances; Z79.899 Other long term (current) drug therapy; Z79.4 Long term (current) use of insulin; E55.9 Vitamin D deficiency, unspecified; Z96.643 Presence of artificial hip joint, bilateral; Z88.7 Allergy status to serum and vaccine

== ENCOUNTER → 2023-07-29 | Outpatient (REF) | payer MEDICARE ==
[~2023-07-29] MED LIST changes: +INSUDET SC; +MAGN400T35 PO; +VITMTA PO
[2023-07-29 14:19] LABS: HEMATOCRIT 38.8 % (36.0-47.0); HEMOGLOBIN 12.5 g/dl (12.0-15.5); MEAN CORPUSCULAR HEMOGLOBIN 31.8 pg (27.0-33.0); MEAN CORPUSCULAR HGB CONC 32.2 g/dl (32.0-36.5); MEAN CORPUSCULAR VOLUME 98.7 fl (80.0-96.0); PLATELET COUNT, AUTOMATED 298 10^3/uL (150-450); RED BLOOD COUNT 3.93 10^6/uL (4.00-5.40); WHITE BLOOD COUNT 5.4 10^3/uL (4.0-10.0)
[2023-07-29 14:25] LABS: ALBUMIN 3.6 G/DL (3.2-5.2); ALKALINE PHOSPHATASE 73 U/L (46-116); ALT/SGPT 16 U/L (7.0-40); AST/SGOT 20 U/L (<34); BILIRUBIN,TOTAL 0.7 MG/DL (0.3-1.2); BLOOD UREA NITROGEN 13 MG/DL (9-23); CALCIUM LEVEL 9.3 MG/DL (8.3-10.6); CARBON DIOXIDE LEVEL 29 MMOL/L (20-31); CHLORIDE LEVEL 101 MMOL/L (98-107); CREATININE FOR GFR 0.54 MG/DL (0.55-1.30); GLOMERULAR FILTRATION RATE > 60.0 (>39); GLUCOSE, FASTING 108 MG/DL (74-106); POTASSIUM SERUM 3.9 MMOL/L (3.5-5.1); SODIUM LEVEL 139 MMOL/L (136-145); TOTAL PROTEIN 6.8 G/DL (5.7-8.2)
[2023-07-29 15:02] LABS: HEMOGLOBIN A1c 5.6 % (4.0-6.0)
== END ==
LOC: M SFHCADAM 09:29
PROVIDERS: ATTEND Family Medicine
DX: C34.92 Malignant neoplasm of unspecified part of left bronchus or lung (principal); E11.628 Type 2 diabetes mellitus with other skin complications

== ENCOUNTER → 2023-08-20 | Outpatient (REF) | payer MEDICARE ==
[~2023-08-20] MED LIST changes: -CEFD300C41; +CEFD300C42; +LACT20EL PO; +PEN-308 SC; -PEN1MIS21 SC; +SENN-52 PO
[2023-08-20 13:25] LABS: HEMATOCRIT 34.5 % (36.0-47.0); HEMOGLOBIN 11.1 g/dl (12.0-15.5); MEAN CORPUSCULAR HEMOGLOBIN 31.7 pg (27.0-33.0); MEAN CORPUSCULAR HGB CONC 32.2 g/dl (32.0-36.5); MEAN CORPUSCULAR VOLUME 98.6 fl (80.0-96.0); PLATELET COUNT, AUTOMATED 372 10^3/uL (150-450)
[2023-08-20 13:28] LABS: ALKALINE PHOSPHATASE 69 U/L (46-116); ALT/SGPT 15 U/L (7.0-40); AST/SGOT 19 U/L (<34); BILIRUBIN,TOTAL 0.5 MG/DL (0.3-1.2); BLOOD UREA NITROGEN 12 MG/DL (9-23); CALCIUM LEVEL 8.8 MG/DL (8.3-10.6); CARBON DIOXIDE LEVEL 30 MMOL/L (20-31); CHLORIDE LEVEL 102 MMOL/L (98-107); GLOMERULAR FILTRATION RATE > 60.0 (>39); GLUCOSE, FASTING 104 MG/DL (74-106); IRON (FE) 34 UG/DL (50-170); MAGNESIUM LEVEL 1.7 MG/DL (1.8-2.4); PERCENT SATURATION 13.3 % (13.2-45.0); POTASSIUM SERUM 4.2 MMOL/L (3.5-5.1); SODIUM LEVEL 137 MMOL/L (136-145); TOTAL IRON BINDING CAPACITY 255 UG/DL (250-425); TOTAL PROTEIN 6.2 G/DL (5.7-8.2)
[2023-08-20 13:29] LABS: FERRITIN 115.5 NG/ML (7.3-270.7)
== END ==
LOC: M SFHCADAM 09:47
PROVIDERS: ATTEND Family Medicine
DX: E83.42 Hypomagnesemia (principal); D63.8 Anemia in other chronic diseases classified elsewhere; I10 Essential (primary) hypertension

== ENCOUNTER → 2023-10-10 | Outpatient (REF) | payer MEDICARE ==
[~2023-10-10] MED LIST changes: +CEFD1CAP9; -CEFD300C42
== END ==
LOC: M SFHCADAM 14:37
PROVIDERS: ATTEND Physician Assistant
DX: J04.0 Acute laryngitis (principal)

== ENCOUNTER → 2023-10-16 | Outpatient (CLI) | payer MEDICARE ==
[~2023-10-16] MED LIST changes: +AMOX500C
== END ==
LOC: M ONCR 14:52
PROVIDERS: ATTEND General Practice
DX: C34.11 Malignant neoplasm of upper lobe, right bronchus or lung (principal); C34.12 Malignant neoplasm of upper lobe, left bronchus or lung; R49.0 Dysphonia; Z71.2 Person consulting for explanation of examination or test findings; F17.210 Nicotine dependence, cigarettes, uncomplicated; Z79.4 Long term (current) use of insulin; Z79.51 Long term (current) use of inhaled steroids; Z79.899 Other long term (current) drug therapy; Z88.1 Allergy status to other antibiotic agents; Z88.7 Allergy status to serum and vaccine; Z88.8 Allergy status to other drugs, medicaments and biological substances; Z92.21 Personal history of antineoplastic chemotherapy; Z92.3 Personal history of irradiation

== ENCOUNTER → 2023-10-28 | Outpatient (REF) | payer MEDICARE ==
[2023-10-28 13:14] LABS: BASO % 0.6 % (0.0-1.0); EOS # 0.1 10^3/uL (0.0-0.5); EOS % 1.9 % (0.0-3.0); HEMATOCRIT 37.4 % (36.0-47.0); HEMOGLOBIN 11.7 g/dl (12.0-15.5); LYMPH # 0.6 10^3/uL (1.5-5.0); MEAN CORPUSCULAR HEMOGLOBIN 28.6 pg (27.0-33.0); MEAN CORPUSCULAR HGB CONC 31.3 g/dl (32.0-36.5); MEAN CORPUSCULAR VOLUME 91.4 fl (80.0-96.0); MONO # 0.6 10^3/uL (0.0-0.8); MONO % 9.1 % (2.0-8.0); NEUTROPHILS # 5.1 10^3/uL (1.5-8.5); NEUTROPHILS % 79.1 % (36.0-66.0); PLATELET COUNT, AUTOMATED 399 10^3/uL (150-450); RED BLOOD COUNT 4.09 10^6/uL (4.00-5.40); WHITE BLOOD COUNT 6.5 10^3/uL (4.0-10.0)
[2023-10-28 13:40] LABS: ALBUMIN 2.8 G/DL (3.2-5.2); ALKALINE PHOSPHATASE 86 U/L (46-116); ALT/SGPT 13 U/L (7.0-40); AST/SGOT 20 U/L (<34); BILIRUBIN,TOTAL 0.5 MG/DL (0.3-1.2); BLOOD UREA NITROGEN 12 MG/DL (9-23); CALCIUM LEVEL 8.9 MG/DL (8.3-10.6); CARBON DIOXIDE LEVEL 28 MMOL/L (20-31); CHLORIDE LEVEL 100 MMOL/L (98-107); CREATININE FOR GFR 0.58 MG/DL (0.55-1.30); GLOMERULAR FILTRATION RATE > 60.0 (>39); GLUCOSE, FASTING 156 MG/DL (74-106); SODIUM LEVEL 134 MMOL/L (136-145); TOTAL PROTEIN 6.6 G/DL (5.7-8.2)
== END ==
LOC: M LABDRWAD 12:19
PROVIDERS: ATTEND Specialist
DX: C34.90 Malignant neoplasm of unspecified part of unspecified bronchus or lung (principal)

== ENCOUNTER → 2023-10-30 | Outpatient (CLI) | payer MEDICARE | LOC: M PLAIMG 10:36 | PROVIDERS: ATTEND Specialist | DX: C34.90 Malignant neoplasm of unspecified part of unspecified bronchus or lung (principal) ==

== ENCOUNTER → 2023-11-13 | Outpatient (REF) | payer MEDICARE ==
[2023-11-13 17:07] LABS: HEMATOCRIT 37.2 % (36.0-47.0); HEMOGLOBIN 11.5 g/dl (12.0-15.5); MEAN CORPUSCULAR HEMOGLOBIN 28.2 pg (27.0-33.0); MEAN CORPUSCULAR HGB CONC 30.9 g/dl (32.0-36.5); MEAN CORPUSCULAR VOLUME 91.2 fl (80.0-96.0); PLATELET COUNT, AUTOMATED 409 10^3/uL (150-450); RED BLOOD COUNT 4.08 10^6/uL (4.00-5.40); WHITE BLOOD COUNT 6.8 10^3/uL (4.0-10.0)
[2023-11-13 17:41] LABS: ALBUMIN 2.9 G/DL (3.2-5.2); ALKALINE PHOSPHATASE 83 U/L (46-116); ALT/SGPT 12 U/L (7.0-40); AST/SGOT 21 U/L (<34); BILIRUBIN,TOTAL 0.4 MG/DL (0.3-1.2); BLOOD UREA NITROGEN 12 MG/DL (9-23); CALCIUM LEVEL 8.9 MG/DL (8.3-10.6); CARBON DIOXIDE LEVEL 29 MMOL/L (20-31); CHLORIDE LEVEL 99 MMOL/L (98-107); CREATININE FOR GFR 0.58 MG/DL (0.55-1.30); GLOMERULAR FILTRATION RATE > 60.0 (>39); GLUCOSE, FASTING 207 MG/DL (74-106); MAGNESIUM LEVEL 1.6 MG/DL (1.8-2.4); POTASSIUM SERUM 3.7 MMOL/L (3.5-5.1); SODIUM LEVEL 137 MMOL/L (136-145); TOTAL PROTEIN 6.9 G/DL (5.7-8.2)
[2023-11-13 17:45] LABS: HEMOGLOBIN A1c 6.6 % (4.0-6.0)
== END ==
LOC: M SFHCADAM 13:30
PROVIDERS: ATTEND Family Medicine
DX: E83.42 Hypomagnesemia (principal); I10 Essential (primary) hypertension; E11.628 Type 2 diabetes mellitus with other skin complications; D63.8 Anemia in other chronic diseases classified elsewhere

== ENCOUNTER → 2023-11-17 | Outpatient (CLI) | payer MEDICARE ==
[~2023-11-17] MED LIST changes: +ISOVUE-370 76% 100ML VIAL As Ordered ONE
== END ==
LOC: M RAD 08:58
PROVIDERS: ATTEND Physician Assistant Medical
DX: J38.01 Paralysis of vocal cords and larynx, unilateral (principal); G93.89 Other specified disorders of brain
CPT/HCPCS: 70491; Q9967

== ENCOUNTER 2023-12-14 13:30 | Emergency (ER) | payer MEDICARE ==
[~2023-12-14] VITALS: Ht 160 cm; Wt 44.1 kg
[~2023-12-14 13:30] MED LIST changes: +CALC200S; +CEPH500C PO; -ISOVUE-370 76% 100ML VIAL As Ordered ONE
[2023-12-14 14:22] LABS: BASO % 0.2 % (0.0-1.0); HEMOGLOBIN 12.1 g/dl (12.0-15.5); LYMPH # 0.6 10^3/uL (1.5-5.0); LYMPH % 6.4 % (24.0-44.0); MEAN CORPUSCULAR HEMOGLOBIN 28.4 pg (27.0-33.0); MEAN CORPUSCULAR HGB CONC 32.7 g/dl (32.0-36.5); MEAN CORPUSCULAR VOLUME 86.9 fl (80.0-96.0); MONO # 0.5 10^3/uL (0.0-0.8); MONO % 5.2 % (2.0-8.0); NEUTROPHILS # 8.1 10^3/uL (1.5-8.5); NEUTROPHILS % 87.9 % (36.0-66.0); PLATELET COUNT, AUTOMATED 363 10^3/uL (150-450); RED BLOOD COUNT 4.26 10^6/uL (4.00-5.40); WHITE BLOOD COUNT 9.2 10^3/uL (4.0-10.0)
[2023-12-14 14:39] LABS: LIPASE 25 U/L (12-53)
[2023-12-14 14:41] LABS: ALBUMIN 3.1 G/DL (3.2-5.2); ALKALINE PHOSPHATASE 78 U/L (46-116); ALT/SGPT 17 U/L (7.0-40); AST/SGOT 27 U/L (<34); BILIRUBIN,DIRECT 0.2 MG/DL (<0.4); BILIRUBIN,TOTAL 0.7 MG/DL (0.3-1.2); BLOOD UREA NITROGEN 8 MG/DL (9-23); CALCIUM LEVEL 8.8 MG/DL (8.3-10.6); CARBON DIOXIDE LEVEL 26 MMOL/L (20-31); CHLORIDE LEVEL 98 MMOL/L (98-107); CREATININE FOR GFR 0.38 MG/DL (0.55-1.30); GLOMERULAR FILTRATION RATE > 60.0 (>39); GLUCOSE, FASTING 183 MG/DL (74-106); POTASSIUM SERUM 3.6 MMOL/L (3.5-5.1); SODIUM LEVEL 134 MMOL/L (136-145); TOTAL PROTEIN 7.3 G/DL (5.7-8.2)
[2023-12-14 14:48] LABS: RSV AMPLIFICATION NEGATIVE (NEGATIVE)
[2023-12-14] MEDS: ONDANSETRON 4MG 2ML VIAL IV ONE (15:12)
[2023-12-14] MEDS: GASTROGRAFIN SOLUTION 30ML PO SCH (16:17)
[2023-12-14] MEDS ORDERED: ISOVUE-370 76% 100ML VIAL As Ordered ONE (16:58)
[2023-12-15 00:12] VITALS: BP 172/86; TEMP 98.2; O2SAT 94
== END 2023-12-15 00:19 | disposition short-term general hospital (02) ==
LOC: EDBD 13:30 → M ED 13:30
DX: G93.0 Cerebral cysts (principal); I45.81 Long QT syndrome; E11.9 Type 2 diabetes mellitus without complications; K21.9 Gastro-esophageal reflux disease without esophagitis; C34.90 Malignant neoplasm of unspecified part of unspecified bronchus or lung; Z79.84 Long term (current) use of oral hypoglycemic drugs; Z88.1 Allergy status to other antibiotic agents; Z88.7 Allergy status to serum and vaccine; Z88.8 Allergy status to other drugs, medicaments and biological substances; Z79.52 Long term (current) use of systemic steroids; Z79.810 Long term (current) use of selective estrogen receptor modulators (SERMs); Z79.83 Long term (current) use of bisphosphonates; Z79.899 Other long term (current) drug therapy
CPT/HCPCS: 70450; 74177; 80048; 80076; 81001; 83605; 83690; 85025; 87631; 93005; 93041; 96374; 99285; J2405; Q9963; Q9967

== ENCOUNTER → 2024-01-08 | Outpatient (RCR) | payer MEDICARE | LOC: M ONCR 12-26 14:02 | PROVIDERS: ATTEND General Practice | DX: Z51.0 Encounter for antineoplastic radiation therapy (principal); C79.31 Secondary malignant neoplasm of brain ==

== ENCOUNTER 2024-01-09 10:40 | Outpatient (RCR) | payer MEDICARE | END 2024-02-08 | LOC: M ONCR 10:40 | PROVIDERS: ATTEND General Practice | DX: Z51.0 Encounter for antineoplastic radiation therapy (principal); C79.31 Secondary malignant neoplasm of brain ==